=== PATIENT | male | born 1990 | race Caucasian/White ===

== ENCOUNTER 2020-04-18 19:43 | Observation (INO) | payer MEDICAID, SELFPAY ==
[2020-04-18 19:44] VITALS: BP 134/75; PULSE 88; RESP 15; TEMP 36.2; O2SAT 100; BMI 17.9
--- NOTE | 2020-04-18 21:09 | ED.VIS.GEN ---
History of Present Illness Chief Complaint: Substance Abuse Informant: Patient Narrative: Patient is a 29-year-old male with longstanding history of opioid dependency presenting for request for opioid detox. Patient states he is been using for the past 2 to 3 years. He uses Percocet anywhere between 10 to 40 mg a day whenever he can get his hands on it. Otherwise he uses heroin or fentanyl. States he uses about half a gram a day. He snorts. He denies any IV drug use. He also uses marijuana intermittently as well as occasional alcohol use. He denies any tobacco use. He states he does not drink heavily and denies any alcohol withdrawal issues. Patient states he last used this afternoon. He currently is not having withdrawal symptoms. Patient states he had intervention with his family which is why he is here today however he is also stating that he wanted to get clean for a while. He denies any other symptoms at this time or complaints. Past Medical History - Allergies and Home Meds Allergies/Adverse Reactions: Allergies No Known Allergies Allergy (Verified 04/18/20 19:46) Primary Care Physician: Care Physician,No Primary [Primary Care Provider] - Past Medical History: - - Opioid dependency Surgical History: no surgical history Smoking Status: Never smoker Review of Systems General: Denies: Chills, Fever, Sweats Eyes: Denies: Visual changes - bilaterally, Diplopia ENT: Denies: Rhinorrhea, Sore throat Cardiovascular: Denies: Chest pain, Palpitations Respiratory: Denies: Dyspnea, Cough, Dyspnea on exertion Gastrointestinal: Denies: Abdominal pain, Nausea, Vomiting, Diarrhea, Melena, Hematochezia Genitourinary: Denies: Dysuria, Hematuria, Frequency Musculoskeletal: Denies: Back pain, Extremity Pain Skin: Denies: Rash, Wounds Neurological: Denies: Headache, Weakness, Numbness Physical Exam Vital Signs/Narrative: Vital Signs Temp Pulse Resp BP Pulse Ox 04/18/20 19:44 97.2 F L 88 15 134/75 H 100 Inital Vital Signs reviewed: Yes General: Well nourished, Well developed, No Acute Distress Head: Normocephalic, Atraumatic Eyes: Perrl, EOMI ENT: Moist mucous membranes, No rhinorrhea Neck: Supple, Nontender Cardiovascular: Regular rate, Regular rhythm, No murmurs Respiratory: No distress, CTA bilaterally, Chest nontender Abdomen: Soft, Nontender, Nondistended, Normal bowel sounds Back: Nontender, Normal Inspection Extremities: Nontender, No edema Skin: Normal color, No rash Neurological: Alert, Oriented x3, Cranial nerves II-XII grossly intact, Normal Strength, Normal Sensation Psychological: Normal affect, Normal Mood Diagnostic/Tx/Re-eval - Medical Decision Making Patient is evaluated for request of opioid detox. Patient does not appear intoxicated at this time. He is acting appropriately. He is given the rules and restrictions for detox and is agreeable with them. Screening labs are obtained. Patient be admitted to hospitalist service for inpatient detox. He is agreeable with plan and stable at time of disposition. He does not appear to be withdrawing acutely at this time. ED Disposition - Plan for ED Patient: Diagnosis: Opioid dependence Referrals: Care Physician,No Primary [Primary Care Provider] -
--- NOTE | 2020-04-18 21:14 | HP.PCM_ITS ---
Problem List (1) Acute opioid withdrawal Status: Acute (2) Acute hyperactive opioid withdrawal delirium Status: Chronic History of Present Illness Date of Admission: 04/18/20 Chief Complaint: Opioid use and dependence. Wants detox. The patient is a 29 year old M with history of chronic opioid use mainly oral Percocet since 2016 came to ER for detox. Patient has history of marijuana use since 2009. In 2016, he hurt his back and was prescribed Percocet. Once he was stopped prescribing, he went for Street Percocet use. He usually takes 50 to 60 mg oxycodone daily. Denies IV use of opioids, methamphetamine ecstasy and other drugs like phencyclidine. Patient snorts oxycodone. He denies benzodiazepines, anticholinergics or other drugs. He occasionally used cigarettes and vaping in the past. He smokes marijuana regularly. His last dose was today in afternoon. He is having mild anxiety symptoms but he still does not have tremors, restless leg, nausea, vomiting, diarrhea, hallucinations or seizures. He usually gets restless, tremor and anxiety attack as withdrawal symptoms. Labs were ordered in the ER. Vitals done in the ER are within normal limit. [] Past Medical History Past Medical History (Chronic Problems): Chronic Problems Acute hyperactive opioid withdrawal delirium (Chronic) Allergies No Known Allergies Allergy (Verified 04/18/20 19:46) Home Medications: Ambulatory Orders Medication Instructions Recorded NK 04/18/20 Surgical History: no surgical history Smoking Status: Never smoker Tobacco Use: Vapor - Refused occasionally vaping in the past. Alcohol: None, Occasional Drugs: - - Percocet Review of Systems Constitutional: Denies: Chills, Fever, Weight Change Eyes: Denies: Blurred vision HEENT: Denies: Difficulty Hearing, Difficulty Swallowing, Head Aches, Sinus Congestion, Sinus Drainage Cardiovascular: Denies: Chest Pain, Palpitations Respiratory: Denies: Cough, Shortness of breath at rest, Sputum production Gastrointestinal: Denies: Abdominal Pain, Nausea, Vomiting Genitourinary: Denies: Dysuria Musculoskeletal: Reports: Back Pain, Muscle pain. Denies: Joint Pain, Joint Tenderness Skin: Denies: Rash, Wounds Neurological: Denies: Balance problems, Blurred vision, Double vision, Focal weakness, Incoordination, Numbness, Tingling Psychiatric: Reports: Anxiety. Denies: Depression, Homicidal Ideations, Suicidal Ideations Hematologic/ Lymphatic: Denies: Easy Bruising, Easy Bleeding VTE Information - Inpt Only VTE Present on Admission: No VTE Mechan Device Prophylaxis: None VTE Pharm Prophylaxis ordered?: No Reason prophylaxis not ordered:: Procedure Not Indicated - Low risk Patient Problems: Active and Suspected Problems Opioid dependence (Acute) Acute opioid withdrawal (Acute) - Physical Exam Vitals/I&O's: Vital Signs Temp Pulse Resp BP Pulse Ox 97.2 F L 88 15 134/75 H 100 04/18/20 19:44 04/18/20 19:44 04/18/20 19:44 04/18/20 19:44 04/18/20 19:44 Oxygen Delivery Method Room Air Weight: 136 lb 0.403 oz Body Mass Index (BMI) 17.9 General: Alert, Oriented x3, Cooperative HEENT: Atraumatic, PERRLA, EOMI, Normocephalic Neck: Supple, No JVD, Negative Carotid Bruits Lungs: Clear to auscultation, Normal air movement, No rhonchi, No wheeze, No rales Cardiovascular: Regular rate, Regular Rhythm, Normal S1, Normal S2, No murmurs Abdomen: Bowel Sounds Present, Soft, Non Tender, Non-Distended Extremities: No edema, Capillary Refill Less than 3 Seconds Skin: No rashes, No breakdown Musculoskeletal: No Tenderness to Palpation of Joints or Extremities Neurological: Cranial nerves II-XII grossly intact, Deep Tendon Reflexes 2+/4 and Symmetrical, Neuro grossly intact, Motor Exam 5/5 strength throughout Psych/Mental Status: Anxious Assessment/Plan All Active Problems Opioid dependence (Acute) Acute opioid withdrawal (Acute) There is a 29-year-old gentleman came to ER for assistance for detoxification of opioid use and dependence. Last use was today. 1. Acute opioid withdrawal: [facility] Started on buprenorphine based order set for acute opioid withdrawal symptom control. Labs are ordered and pending. U tox is ordered 2. Chronic opioid use, dependence and tolerance: Counseling done to stop using the drugs. 3. Chronic use of marijuana 4. VTE prophylaxis, low risk. Early ambulation encouraged. No prophylaxis indicated Inpatient E&M: 33198 Init Hosp L3
[2020-04-18 21:21] VITALS: BP 134/75; PULSE 88; RESP 15; TEMP 36.2; O2SAT 100
[2020-04-18 21:25] LABS: Absolute Lymphocyte Count 2.25 X10^3/uL (0.83-4.51); Absolute Neutrophil Count 5.5 X10^3/uL (2.0-7.7); Basophil# 0.05 X10^3/uL; Basophil% 0.6 % (0-1); Eosinophil# 0.03 X10^3/uL; Eosinophils% 0.4 % (0-5); Hemoglobin 14.1 g/dL (13.0-16.5); Lymphocyte # 2.25 X10^3/ul (4.0); Lymphocyte % 26.6 % (19-41); Mean Corpuscular Hgb 28.7 pg (27.0-32.0); Mean Corpuscular Volume 89.4 fL (80-94); Mean Platelet Vol. 9.3 fl (6.2-12.0); Monocyte# 0.61 X10^3/uL; Monocyte% 7.2 % (0-10); NRBC Flagged by Analyzer 0 % (0-5); Neutrophil # 5.49 X10^3/uL (2.7-7.7); Platelet Count 283 K/mm3 (150-450); RBC Distribution Width CV 12.4 % (11.6-14.6); RBC Distribution Width SD 40.4 fl (35.1-43.9); Red Blood Count 4.92 M/mm3 (4.6-6.2); White Blood Count 8.5 K/mm3 (4.4-11.0)
[2020-04-18 21:29] VITALS: BP 106/63; PULSE 88; RESP 16; TEMP 36.9; O2SAT 100
[2020-04-18 21:41] LABS: Amphetamine Urine VISTA NEGATIVE (<1000 ng/mL); Barbiturate Urine VISTA NEGATIVE (< 200 ng/mL); Benzodiazepine Urine VISTA NEGATIVE (< 200 ng/mL); Cocaine Urine VISTA NEGATIVE (< 300 ng/mL); Ecstacy Urine VISTA NEGATIVE (< 500 ng/mL); Methadone Urine VISTA NEGATIVE (< 300 ng/mL); PCP Urine VISTA NEGATIVE (< 25 ng/mL); THC Urine VISTA NEGATIVE (< 50 ng/mL); Vista UDS pH Range 6
[2020-04-18 21:54] LABS: Bacteria 0 SEEN /hpf (None Seen); Mucous, Urine 0 SEEN /hpf (<or=2+); Red Blood Cells-Urine 0 SEEN /hpf (0-5); Squamous Epithelial Cells - UA 0 SEEN /hpf (0-5); White Blood Cells 0 SEEN /hpf (0-5)
[2020-04-18 22:12] VITALS: BP 110/65; PULSE 71; RESP 14; TEMP 36.6; O2SAT 100
[2020-04-18 22:14] LABS: Color, Urine Yellow (Yellow); Glucose, Dipstick Normal (Normal); Ketone-Dipstick Negative (Negative); Leukocyte Esterase-Dipstick Negative /ul (Negative); Nitrite-Dipstick Negative (Negative); Occult Blood-Urine Negative /ul (Negative); Protein-Dipstick Negative (Negative); Urine Bilirubin Dipstick Negative (Negative); Urine Clarity Clear (Clear); Urine Urobilinogen Normal (Normal)
[2020-04-18 22:20] VITALS: BMI 17.5
[2020-04-18 22:21] VITALS: BMI 17.6
[2020-04-18 22:47] LABS: ALB/GLOB Ratio 1.2 RATIO (0.9-2.4); AST(SGOT) 13 U/L (15-37); Alanine Aminotransfer ALT/SGPT 20 U/L (16-61); Albumin, Serum 3.5 g/dL (3.2-5.0); Alkaline Phosphatase 68 U/L (45-117); Anion Gap 4 (5-15); BUN 9 mg/dL (7-18); BUN/Creat Ratio 12.8 RATIO (10-20); Calcium,Total 8.2 mg/dL (8.5-10.1); Chloride 105 mmol/L (98-107); EST Glomerular Filtration Rate 140 mL/min (>60); Est Glom Filt Rate - Afr Amer 169 mL/min (>60); Estimated Creatinine Clearance 133.02 ml/min; Glucose 66 mg/dL (74-106); Magnesium 2.2 mg/dL (1.6-2.6); Potassium 3.4 mmol/L (3.5-5.1); Protein, Total 6.5 g/dL (6.4-8.2); Sodium Level 141 mmol/L (136-145)
[2020-04-18 23:25] LABS: International Normalized Ratio 1.2; Prothrombin Time (Protime)PT. 14.8 SECONDS (11.7-14.9)
[2020-04-19 02:38] VITALS: BP 108/64; PULSE 82; RESP 14; TEMP 36.5; O2SAT 99
[2020-04-19 05:49] VITALS: BP 97/54; PULSE 73; RESP 14; TEMP 36.6; O2SAT 99
[2020-04-19 08:45] VITALS: BP 96/49; PULSE 59; RESP 12; TEMP 36.7; O2SAT 98
--- NOTE | 2020-04-19 10:42 | ADDICTION ---
This advertising writer met with patient in his room this morning to conduct ASAM, MSE, and DUDIT assessments and to begin processing discharge. Patient reports that he does not have insurance and needs to obtain insurance prior to following through with ongoing AoD treatment. This advertising writer provided patient with contact information for [facility] and [facility]. Job and Family Services locations, [facility]. ADM board, [facility], [facility], [facility] and [facility] ([facility]) and [facility], [facility], [facility], [facility], [facility] and [facility] ([facility]). He appears appropriate for the 4.0 LOC as evidenced by his use history and current, active withdrawal symptoms. This advertising writer will fax completed assessments to [facility].
[2020-04-19] MEDS: Mag Hydrox/Al Hydrox/Simeth 30 ML UDC PO (13:13)
[2020-04-19] MEDS: Buprenorphine HCl 2 MG TAB.SUBL SL ×2 (13:13→20:42)
[2020-04-19] MEDS: cloNIDine HCl 0.1 MG Tablet PO (13:13)
[2020-04-19] MEDS: hydrOXYzine PAM 25 MG Capsule 50 MG PO ×2 (13:13→20:07)
--- NOTE | 2020-04-19 13:19 | PCM.PN.HOSP ---
Patient Problems: Active and Suspected Problems Opioid dependence (Acute) Acute opioid withdrawal (Acute) Subjective: Doing well, no issues overnight Vitals/I&O's: Vital Signs Temp Pulse Resp BP Pulse Ox 98.1 F 59 L 12 96/49 L 98 04/19/20 08:45 04/19/20 08:45 04/19/20 08:45 04/19/20 08:45 04/19/20 08:45 Oxygen Delivery Method Room Air Weight: 133 lb 2.547 oz Body Mass Index (BMI) 17.5 Intake and Output for Last 24 Hours 04/17/20 04/18/20 04/19/20 23:59 23:59 23:59 Intake Total 620 / 620 Balance 620 / 620 General: Alert, Oriented x3, Cooperative, No apparent distress HEENT: Atraumatic, PERRLA, EOMI, Normocephalic Oral: Moist Mucosa Neck: Supple, No JVD Lungs: Clear to auscultation, Normal air movement, No rhonchi, No wheeze, No rales Cardiovascular: Regular rate, Regular Rhythm, Normal S1, Normal S2, No murmurs Abdomen: Soft, Non Tender, Non-Distended, No Hepato-splenomegaly Extremities: No edema, Capillary Refill Less than 3 Seconds Skin: No rashes, No breakdown Neurological: Neuro grossly intact, Sensory exam intact to light touch and pain Psych/Mental Status: Normal Affect, Appropriate Laboratory Results 04/18/20 20:00: Urine Opiates Screen NEGATIVE, Urine Methadone Screen NEGATIVE, Ur Barbiturates Screen NEGATIVE, Ur Phencyclidine Scrn NEGATIVE, Ur Amphetamines Screen NEGATIVE, U Methamphetamin-MDMA NEGATIVE, U Benzodiazepines Scrn NEGATIVE, Urine Cocaine Screen NEGATIVE, U Cannabinoids Screen NEGATIVE, Ur Drug Screen Comment 04/18/20 20:00: Urine Color Yellow, Urine Clarity Clear, Urine pH 7.0, Ur Specific [place] 1.010, Urine Protein Negative, Urine Glucose (UA) Normal, Urine Ketones Negative, Urine Occult Blood Negative, Urine Nitrite Negative, Urine Bilirubin Negative, Urine Urobilinogen Normal, Ur Leukocyte Esterase Negative, Urine RBC 0 SEEN, Urine WBC 0 SEEN, Ur Squamous Epith Cells 0 SEEN, Urine Bacteria 0 SEEN, Urine Mucus 0 SEEN 04/18/20 21:17: WBC 8.5, RBC 4.92, Hgb 14.1, Hct 44.0, MCV 89.4, MCH 28.7, MCHC 32.0, RDW Std Deviation 40.4, RDW Coeff of Floyd 12.4, Plt Count 283, MPV 9.3, Immature Gran % (Auto) 0.200, Neut % (Auto) 65.0, Lymph % (Auto) 26.6, Holmes % (Auto) 7.2, Eos % (Auto) 0.4, Baso % (Auto) 0.6, Absolute Neuts (auto) 5.5, Absolute Lymphs (auto) 2.25, Nucleated RBC % 0 04/18/20 21:17: PT Cancelled, INR Cancelled 04/18/20 21:17: Sodium Cancelled, Potassium Cancelled, Chloride Cancelled, Carbon Dioxide Cancelled, Anion Gap Cancelled, BUN Cancelled, Creatinine Cancelled, Estim Creat Clear Calc Cancelled, Est GFR (MDRD) Af Amer Cancelled, Est GFR (MDRD) Non-Af Cancelled, BUN/Creatinine Ratio Cancelled, Glucose Cancelled, Calcium Cancelled, Magnesium Cancelled, Total Bilirubin Cancelled, AST Cancelled, ALT Cancelled, Alkaline Phosphatase Cancelled, Total Protein Cancelled, Albumin Cancelled, Globulin Cancelled, Albumin/Globulin Ratio Cancelled 04/18/20 21:17: Ethyl Alcohol 10.0 04/18/20 21:30: PT Cancelled, INR Cancelled 04/18/20 22:20: Sodium 141, Potassium 3.4 L, Chloride 105, Carbon Dioxide 32.0, Anion Gap 4 L, BUN 9, Creatinine 0.70, Estim Creat Clear Calc 133.02, Est GFR (MDRD) Af Amer 169, Est GFR (MDRD) Non-Af 140, BUN/Creatinine Ratio 12.8, Glucose 66 L, Calcium 8.2 L, Magnesium 2.2, Total Bilirubin 0.40, AST 13 L, ALT 20, Alkaline Phosphatase 68, Total Protein 6.5, Albumin 3.5, Globulin 3.0, Albumin/Globulin Ratio 1.2 04/18/20 22:20: PT 14.8, INR 1.2 Current Medications Acetaminophen (Tylenol) 500 mg PO Q4H PRN PRN PRN Reason: Temp > 100.4 F Al Hydroxide/Mg Hydroxide (Mylanta Ii) 30 ml PO Q6H PRN PRN PRN Reason: dyspesia Last Admin: 04/19/20 13:13 Dose: 30 ml Documented by: Bisacodyl (Dulcolax) 10 mg RECTAL DAILY PRN PRN Reason: Constipation Buprenorphine HCl (Buprenorphine Hcl) 4 mg SL Q8H MARIANA; Taper Stop: 04/22/20 13:14 Last Admin: 04/19/20 13:13 Dose: 4 mg Documented by: Clonidine (Catapres) 0.1 mg PO Q8H PRN PRN PRN Reason: RESTLESSNESS Last Admin: 04/19/20 13:13 Dose: 0.1 mg Documented by: Dicyclomine HCl (Bentyl) 20 mg PO Q6H PRN PRN PRN Reason: Abdominal Discomfort Gabapentin (Neurontin) 300 mg PO Q8H PRN PRN PRN Reason: moderate to severe anxiety Hydroxyzine Pamoate (Vistaril Pamoate Capsule) 50 mg PO Q6H PRN PRN PRN Reason: mild anxiety Last Admin: 04/19/20 13:13 Dose: 50 mg Documented by: Ibuprofen (Motrin) 600 mg PO Q8H PRN PRN PRN Reason: Pain Score 1-10/10 Loperamide HCl (Imodium) 2 mg PO Q4H PRN PRN PRN Reason: LOOSE STOOLS Methocarbamol (Methocarbamol) 1,500 mg PO Q6H PRN PRN PRN Reason: MUSCLE SPASM Ondansetron HCl (Zofran Odt) 8 mg PO Q8H PRN PRN PRN Reason: NAUSEA Senna (Senokot) 2 tablet PO QHS PRN PRN PRN Reason: Constipation Trazodone HCl (Desyrel) 100 mg PO QHS PRN PRN PRN Reason: INSOMNIA Medical Necessity - Tobacco Use Smoking Status: Never smoker Tobacco Use: Vapor - Refused occasionally vaping in the past. Assessment/Plan All Active Problems Opioid dependence (Acute) Acute opioid withdrawal (Acute) 1. Acute opiate withdrawal -Last use was 6 PM last night. He is examined between 0.2-.4 g -He started using after back injury in 2014 and he initially started with Percocet and then transition to heroin -Continue with opiate withdrawal protocol and plan for discharge to [facility] DVT: Ambulation Inpatient E&M: 07733 [facility] Hosp L2
[2020-04-19 14:00] VITALS: BP 105/68; PULSE 64; RESP 12; TEMP 36.7; O2SAT 100
--- NOTE | 2020-04-19 15:37 | CASEMGMT ---
Addendum entered by Clemencia Landis 04/19/20 15:39: Per PFS, pt has [facility] Medicaid. Original Note: Social Work Note Pt is listed as self-pay. Laurel Martínez provided pt with resources on [facility] & family services and resources for substance abuse treatment in [place]. SW to follow for any financial concerns that arise. Clemencia Landis CONFIGURATION MANAGEMENT ADVISOR, [employer] FARMWORKER
[2020-04-19] MEDS: Gabapentin 300 MG Capsule PO (16:08)
[2020-04-19] MEDS: Methocarbamol 750 MG Tablet 1500 MG PO (16:08)
[2020-04-19] MEDS: Ibuprofen 600 MG Tablet PO (18:11)
[2020-04-19] MEDS: Dicyclomine 10 MG Capsule 20 MG PO (18:11)
[2020-04-19] MEDS: chlordiazePOXIDE 25 MG Capsule PO ×2 (18:12→23:33)
[2020-04-19 20:01] VITALS: BP 110/67; PULSE 56; RESP 16; TEMP 36.7; O2SAT 99
--- NOTE | 2020-04-19 22:10 | NURSING ---
Per patient, ok to give medical information to grandmother if she calls in. Juliane Cardoza: [phone]
[2020-04-20 02:05] VITALS: BP 112/69; PULSE 67; RESP 16; TEMP 36.8; O2SAT 100
[2020-04-20] MEDS: Methocarbamol 750 MG Tablet 1500 MG PO ×2 (02:09→21:10)
[2020-04-20] MEDS: Buprenorphine HCl 2 MG TAB.SUBL SL ×3 (04:33→21:10)
[2020-04-20] MEDS: chlordiazePOXIDE 25 MG Capsule PO ×4 (05:21→23:15)
[2020-04-20 10:00] VITALS: BP 112/72; PULSE 53; RESP 14; TEMP 37; O2SAT 100
[2020-04-20] MEDS: Ibuprofen 600 MG Tablet PO (11:10)
[2020-04-20] MEDS: Loperamide 2 MG Capsule PO (11:10)
[2020-04-20] MEDS: Ondansetron ODT 4 MG Tablet 8 MG PO ×2 (11:10→20:09)
--- NOTE | 2020-04-20 12:15 | PN_ITS ---
Patient Problems: Active and Suspected Problems Opioid dependence (Acute) Acute opioid withdrawal (Acute) Subjective: No acute withdrawal symptoms yesterday, and was started on Librium for just a total of 8 doses every 6 hours. He is finally been able to fall asleep Vitals/I&O's: Vital Signs Temp Pulse Resp BP Pulse Ox 98.6 F 53 L 14 112/72 100 04/20/20 10:00 04/20/20 10:00 04/20/20 10:00 04/20/20 10:04/20/20 10:00 Oxygen Delivery Method Room Air Weight: 133 lb 2.547 oz Body Mass Index (BMI) 17.5 Intake and Output for Last 24 Hours 04/18/20 04/19/20 04/20/20 23:59 23:59 23:59 Intake Total 770 / 770 Balance 770 / 770 General: Alert, Oriented x3, Cooperative, No apparent distress HEENT: Atraumatic, PERRLA, EOMI, Normocephalic Oral: Moist Mucosa Neck: Supple, No JVD Lungs: Clear to auscultation, Normal air movement, No rhonchi, No wheeze, No rales Cardiovascular: Regular rate, Regular Rhythm, Normal S1, Normal S2, No murmurs Abdomen: Soft, Non Tender, Non-Distended, No Hepato-splenomegaly Extremities: No edema, Capillary Refill Less than 3 Seconds Skin: No rashes, No breakdown Neurological: Neuro grossly intact, Sensory exam intact to light touch and pain Psych/Mental Status: Normal Affect, Appropriate Current Medications Acetaminophen (Tylenol) 500 mg PO Q4H PRN PRN PRN Reason: Temp > 100.4 F Al Hydroxide/Mg Hydroxide (Mylanta Ii) 30 ml PO Q6H PRN PRN PRN Reason: dyspesia Last Admin: 04/19/20 13:13 Dose: 30 ml Documented by: Bisacodyl (Dulcolax) 10 mg RECTAL DAILY PRN PRN Reason: Constipation Buprenorphine HCl (Buprenorphine Hcl) 4 mg SL Q8H MARIANA; Taper Stop: 04/22/20 13:14 Last Admin: 04/20/20 04:33 Dose: 4 mg Documented by: Chlordiazepoxide (Librium) 25 mg PO Q6 MARIANA Stop: 04/21/20 12:01 Last Admin: 04/20/20 11:10 Dose: 25 mg Documented by: Clonidine (Catapres) 0.1 mg PO Q8H PRN PRN PRN Reason: RESTLESSNESS Last Admin: 04/19/20 13:13 Dose: 0.1 mg Documented by: Dicyclomine HCl (Bentyl) 20 mg PO Q6H PRN PRN PRN Reason: Abdominal Discomfort Last Admin: 04/19/20 18:11 Dose: 20 mg Documented by: Gabapentin (Neurontin) 300 mg PO Q8H PRN PRN PRN Reason: moderate to severe anxiety Last Admin: 04/19/20 16:08 Dose: 300 mg Documented by: Hydroxyzine Pamoate (Vistaril Pamoate Capsule) 50 mg PO Q6H PRN PRN PRN Reason: mild anxiety Last Admin: 04/19/20 20:07 Dose: 50 mg Documented by: Ibuprofen (Motrin) 600 mg PO Q8H PRN PRN PRN Reason: Pain Score 1-10/10 Last Admin: 04/20/20 11:10 Dose: 600 mg Documented by: Loperamide HCl (Imodium) 2 mg PO Q4H PRN PRN PRN Reason: LOOSE STOOLS Last Admin: 04/20/20 11:10 Dose: 2 mg Documented by: Methocarbamol (Methocarbamol) 1,500 mg PO Q6H PRN PRN PRN Reason: MUSCLE SPASM Last Admin: 04/20/20 02:09 Dose: 1,500 mg Documented by: Ondansetron HCl (Zofran Odt) 8 mg PO Q8H PRN PRN PRN Reason: NAUSEA Last Admin: 04/20/20 11:10 Dose: 8 mg Documented by: Senna (Senokot) 2 tablet PO QHS PRN PRN PRN Reason: Constipation Trazodone HCl (Desyrel) 100 mg PO QHS PRN PRN PRN Reason: INSOMNIA STROKE Vital Signs/Narrative: Vital Signs Temp Pulse Resp BP Pulse Ox 04/20/20 10:00 98.6 F 53 L 14 112/72 100 Medical Necessity - Tobacco Use Smoking Status: Never smoker Tobacco Use: Vapor - Refused occasionally vaping in the past. Assessment/Plan All Active Problems Opioid dependence (Acute) Acute opioid withdrawal (Acute) 1. Acute opiate withdrawal -Last use was 6 PM last night. He is examined between 0.2-.4 g -He started using after back injury in 2014 and he initially started with Percocet and then transition to heroin/fentanyl -Continue with opiate withdrawal protocol and plan for discharge to [facility] -We will continue with Librium 25 mg p.o. every 6 hours for 8 total doses DVT: Ambulation Inpatient E&M: 59998 Subs Hosp L2
--- NOTE | 2020-04-20 13:03 | ADDICTION ---
This headline writer attempted to meet with patient. Patient declined due to not feeling well.
[2020-04-20 14:05] VITALS: BP 112/74; PULSE 52; RESP 12; TEMP 37.2; O2SAT 99
[2020-04-20 16:55] VITALS: BP 120/73; PULSE 56; RESP 14; TEMP 37.3; O2SAT 100
[2020-04-20 20:04] VITALS: BP 121/77; PULSE 59; RESP 16; TEMP 36.9; O2SAT 100
[2020-04-20] MEDS: Dicyclomine 10 MG Capsule 20 MG PO (23:15)
[2020-04-21 02:34] VITALS: BP 114/73; PULSE 54; RESP 16; TEMP 37.5; O2SAT 98
[2020-04-21] MEDS: Buprenorphine HCl 2 MG TAB.SUBL SL ×2 (04:46→14:20)
[2020-04-21] MEDS: chlordiazePOXIDE 25 MG Capsule PO ×2 (06:09→11:58)
--- NOTE | 2020-04-21 09:33 | ADDICTION ---
This functional tester typewriters attempted to visit with patient this morning to finalize discharge plan and to provide support. Patient did not rouse to this functional tester typewriters's verbal attempts to wake him up to engage in planning. Patient appeared to be resting peacefully. This functional tester typewriters will attempt to meet with patient tomorrow if he is still at [facility].
[2020-04-21 09:58] VITALS: BP 102/65; PULSE 50; RESP 18; TEMP 36.7; O2SAT 99
--- NOTE | 2020-04-21 11:50 | PN_ITS ---
Patient Problems: Active and Suspected Problems Opioid dependence (Acute) Acute opioid withdrawal (Acute) Subjective: Has had a rough few days. Feeling a little bit better today. He will finish his Subutex taper at 1 AM Vitals/I&O's: Vital Signs Temp Pulse Resp BP Pulse Ox 98.0 F 50 L 18 102/65 99 04/21/20 09:58 04/21/20 09:58 04/21/20 09:58 04/21/20 09:58 04/21/20 09:58 Oxygen Delivery Method Room Air Weight: 133 lb 2.547 oz Body Mass Index (BMI) 17.5 Intake and Output for Last 24 Hours 04/19/20 04/20/20 04/21/20 23:59 23:59 23:59 Intake Total 770 / 770 300 / 300 Output Total 100 / 100 Balance 770 / 770 200 / 200 General: Alert, Oriented x3, Cooperative, No apparent distress, tired HEENT: Atraumatic, PERRLA, EOMI, Normocephalic Oral: Moist Mucosa Neck: Supple, No JVD Lungs: Clear to auscultation, Normal air movement, No rhonchi, No wheeze, No rales Cardiovascular: Regular rate, Regular Rhythm, Normal S1, Normal S2, No murmurs Abdomen: Soft, Non Tender, Non-Distended, No Hepato-splenomegaly Extremities: No edema, Capillary Refill Less than 3 Seconds Skin: No rashes, No breakdown Neurological: Neuro grossly intact, Sensory exam intact to light touch and pain Psych/Mental Status: Normal Affect, Appropriate Current Medications Acetaminophen (Tylenol) 500 mg PO Q4H PRN PRN PRN Reason: Temp > 100.4 F Al Hydroxide/Mg Hydroxide (Mylanta Ii) 30 ml PO Q6H PRN PRN PRN Reason: dyspesia Last Admin: 04/19/20 13:13 Dose: 30 ml Documented by: Bisacodyl (Dulcolax) 10 mg RECTAL DAILY PRN PRN Reason: Constipation Buprenorphine HCl (Buprenorphine Hcl) 2 mg SL Q8H MARIANA; Taper Stop: 04/22/20 13:14 Last Admin: 04/21/20 04:46 Dose: 2 mg Documented by: Chlordiazepoxide (Librium) 25 mg PO Q6 MARIANA Stop: 04/21/20 12:01 Last Admin: 04/21/20 06:09 Dose: 25 mg Documented by: Clonidine (Catapres) 0.1 mg PO Q8H PRN PRN PRN Reason: RESTLESSNESS Last Admin: 04/19/20 13:13 Dose: 0.1 mg Documented by: Dicyclomine HCl (Bentyl) 20 mg PO Q6H PRN PRN PRN Reason: Abdominal Discomfort Last Admin: 04/20/20 23:15 Dose: 20 mg Documented by: Gabapentin (Neurontin) 300 mg PO Q8H PRN PRN PRN Reason: moderate to severe anxiety Last Admin: 04/19/20 16:08 Dose: 300 mg Documented by: Hydroxyzine Pamoate (Vistaril Pamoate Capsule) 50 mg PO Q6H PRN PRN PRN Reason: mild anxiety Last Admin: 04/19/20 20:07 Dose: 50 mg Documented by: Ibuprofen (Motrin) 600 mg PO Q8H PRN PRN PRN Reason: Pain Score 1-10/10 Last Admin: 04/20/20 11:10 Dose: 600 mg Documented by: Loperamide HCl (Imodium) 2 mg PO Q4H PRN PRN PRN Reason: LOOSE STOOLS Last Admin: 04/20/20 11:10 Dose: 2 mg Documented by: Methocarbamol (Methocarbamol) 1,500 mg PO Q6H PRN PRN PRN Reason: MUSCLE SPASM Last Admin: 04/20/20 21:10 Dose: 1,500 mg Documented by: Ondansetron HCl (Zofran Odt) 8 mg PO Q8H PRN PRN PRN Reason: NAUSEA Last Admin: 04/20/20 20:09 Dose: 8 mg Documented by: Senna (Senokot) 2 tablet PO QHS PRN PRN PRN Reason: Constipation Trazodone HCl (Desyrel) 100 mg PO QHS PRN PRN PRN Reason: INSOMNIA STROKE Vital Signs/Narrative: Vital Signs Temp Pulse Resp BP Pulse Ox 04/21/20 09:58 98.0 F 50 L 18 102/65 99 Medical Necessity - Tobacco Use Smoking Status: Never smoker Tobacco Use: Vapor - Refused occasionally vaping in the past. Assessment/Plan All Active Problems Opioid dependence (Acute) Acute opioid withdrawal (Acute) 1. Acute opiate withdrawal -Last use was 6 PM last night. He is examined between 0.2-.4 g -He started using after back injury in 2014 and he initially started with Percocet and then transition to heroin/fentanyl -Continue with opiate withdrawal protocol and plan for discharge to [facility] -We will continue with Librium 25 mg p.o. every 6 hours for 8 total doses DVT: Ambulation Inpatient E&M: 03270 Subs Hosp L2
--- NOTE | 2020-04-21 13:30 | CHAPLAIN ---
Type of Pastoral Visit _x__ Initial Visit ___ Follow-up Visit ___ On-call Visit ___ General Patient Visit ___ Spiritual Assessment ___ Family Conference ___ Bereavement ___ Rapid Response ___ Code Blue ___ Other (describe below) Pastoral Care Referral From _x__ Patient ___ Family ___ Nurse ___ Physician ___ Chief Guard ___ Junior [employer] D[employer] ___ Other (describe below) Sacrament/Intervention _x__ Active listening ___ Anointing ___ Anabaptist ___ Bereavement ___ Communion ___ Chanelle exploration ___ _x__ Life review ___ Prayer ___ Reconciliation ___ Sacrament of Sick _x__ Supportive presence ___ Wedding ___ Other (describe below) Pastoral Comments patient was awake and welcomed this historic site administrator into room; pt states that he is feeling much better today and is glad that he got help for detox; pt begins life story and how family held an intervention for him on Sunday night and that is when he came to hospital; pt states this is what I wanted but didn't know how to do it; pt says he is motivated due to wanting to be there for his family; this historic site administrator was called out of room for emergency at this time and concluded this visit
[2020-04-21 14:22] VITALS: BP 122/72; PULSE 67; RESP 18; TEMP 36.9; O2SAT 97
[2020-04-21 20:25] VITALS: BP 107/72; PULSE 58; RESP 16; TEMP 36.8; O2SAT 99
[2020-04-22] MEDS: Buprenorphine HCl 2 MG TAB.SUBL SL (01:15)
[2020-04-22 08:40] VITALS: BP 110/75; PULSE 54; RESP 18; TEMP 36.8; O2SAT 100
--- NOTE | 2020-04-22 08:49 | DCINST_ITS ---
- Discharge Diagnoses Current Active Problems: Current Active and Chronic Problems Opioid dependence (Acute) Acute opioid withdrawal (Acute) Acute hyperactive opioid withdrawal delirium (Chronic) You will use the following diet at home:: Regular Your food should be the consistency of: Regular Your liquids should be the consistency of: Regular/Thin Discharge Activity: Return to Normal Activity Call your doctor if you observe: Fever of 101 or Higher, Shortness of breath, Dizziness, Fainting spells, Swelling in the ankles, Chest pain, Increased palpitations (irregular heartbeat) Allergies/Adverse Reactions: Allergies No Known Allergies Allergy (Verified 04/18/20 19:46) Medications to take at Discharge NK 04/18/20 Primary Care Physician: Care Physician,No Primary [Primary Care Provider] - Please follow up with your Primary Care Physician in: 3-5 days Test Results: Test results from this visit will be discussed in further detail at your follow- up appointment, if applicable. Please Follow Up With: 180 When: When scheduled
--- NOTE | 2020-04-22 14:48 | DS.PCM_ITS ---
Discharge Date and Diagnosis Date of Admission: 04/18/20 Date of Discharge: 04/22/20 - Secondary Discharge Diagnosis Chronic Problems: Chronic Problems Acute hyperactive opioid withdrawal delirium (Chronic) Hospital Course and Treatment Imaging Results: None Consults: None Operations: None Procedures: None Summary of Care Provided: Per HPI: The patient is a 29 year old M with history of chronic opioid use mainly oral Percocet since 2016 came to ER for detox. Patient has history of marijuana use since 2009. In 2016, he hurt his back and was prescribed Percocet. Once he was stopped prescribing, he went for Street Percocet use. He usually takes 50 to 60 mg oxycodone daily. Denies IV use of opioids, methamphetamine ecstasy and other drugs like phencyclidine. Patient snorts oxycodone. He denies benzodiazepines, anticholinergics or other drugs. He occasionally used cigarettes and vaping in the past. He smokes marijuana regularly. His last dose was today in afternoon. He is having mild anxiety symptoms but he still does not have tremors, restless leg, nausea, vomiting, diarrhea, hallucinations or seizures. He usually gets restless, tremor and anxiety attack as withdrawal symptoms. Labs were ordered in the ER. Vitals done in the ER are within normal limit. Hospital Course: 1. Acute opiate [id number] male with history of chronic opiate use use mostly Percocet after he had some back pain, and then transition to fentanyl and heroin presented to the hospital after using between 0.2 1.4 g of heroin. He had a little bit of a rough course and needed the addition of Librium to get his withdrawal symptoms under control. He did tolerate the Librium on top of the Suboxone taper and on the day of discharge was doing very well. He initially did talk with 180, however he was not feeling well enough to talk with him on his second or third day of admission. He was kept an extra day because his Subutex taper was not completed until 1 AM this morning. He was discharged today and he [place] like [place] I discussed with darius herrmann the plan for discharge today and he expressed understanding of the risks and benefits of going home. - Physical Exam Vitals/I&O's: Vital Signs Temp Pulse Resp BP Pulse Ox 98.3 F 54 L 18 110/75 100 04/22/20 08:40 04/22/20 08:40 04/22/20 08:40 04/22/20 08:40 04/22/20 08:40 Oxygen Delivery Method Room Air Weight: 133 lb 2.547 oz Body Mass Index (BMI) 17.5 Intake and Output for Last 24 Hours 04/20/20 04/21/20 04/22/20 23:59 23:59 23:59 Intake Total 300 / 300 500 / 500 250 / 250 Output Total 100 / 100 Balance 200 / 200 500 / 500 250 / 250 General: Alert, Oriented x3, Cooperative, No apparent distress HEENT: Atraumatic, PERRLA, EOMI, Normocephalic Oral: Moist Mucosa Neck: Supple, No JVD Lungs: Clear to auscultation, Normal air movement, No rhonchi, No wheeze, No rales Cardiovascular: Regular rate, Regular Rhythm, Normal S1, Normal S2, No murmurs Abdomen: Soft, Non Tender, Non-Distended, No Hepato-splenomegaly Extremities: No edema, Capillary Refill Less than 3 Seconds Skin: No rashes, No breakdown Neurological: Neuro grossly intact, Sensory exam intact to light touch and pain Psych/Mental Status: Normal Affect, Appropriate Discharge Activity: Return to Normal Activity Call your doctor if you observe: Fever of 101 or Higher, Shortness of breath, Dizziness, Fainting spells, Swelling in the ankles, Chest pain, Increased palpitations (irregular heartbeat) Home Medications: Medications to take at Discharge NK 04/18/20 Primary Care Physician: Care Physician,No Primary [Primary Care Provider] - Please follow up with your Primary Care Physician in: 3-5 days Please Follow Up With: Outpatient Rehab Disposition: Home Minutes spent on discharge:: 35 Patient Condition:: Stable Medical Necessity - Tobacco Use Smoking Status: Never smoker Tobacco Use: Vapor - Refused occasionally vaping in the past. Meaningful Use Info Meaningful Use Diagnoses (Choose all that apply): None applicable Inpatient E&M: 58915 Disch Hosp
== END 2020-04-22 11:55 | disposition home or self-care (01) | DRG 773 ==
LOC: ED 20:14 → MS3 04-19 07:17
PROVIDERS: Admitting Provider Internal Medicine; Emergency Provider Emergency Medicine; Visit Provider Family Medicine
DX: F11.23 Opioid dependence with withdrawal (principal); F12.90 Cannabis use, unspecified, uncomplicated; F17.290 Nicotine dependence, other tobacco product, uncomplicated
CPT/HCPCS: 36415; 80053; 80307; 80320; 81001; 83735; 85025; 85610; 99218; 99284; A4216; G0378; G0480

== ENCOUNTER 2020-10-07 18:31 | Observation (INO) | payer MEDICAID, SELFPAY ==
[2020-10-07 18:33] VITALS: BP 140/77; PULSE 94; RESP 16; TEMP 36.3; O2SAT 100; BMI 18.7
--- NOTE | 2020-10-07 19:10 | ED.DCSUM_ITS ---
History of Present Illness Chief Complaint: Substance Abuse Informant: Patient Narrative: 30-year-old male presents requesting detox from fentanyl. Patient has his grandfather with him. He tells me he has not used anything since March other than some cannabis. States he wants to get counseling and is set up with 180. He states that other than his legs feel little bit weak he feels good. He has significant go to the bathroom and while in the hallway tells me that he is been daily using fentanyl since July but did not tell his grandfather. I did mention that this is pretty much the opposite of what he wants to be doing if he is serious about his rehab. He should not be lying especially to those that care for him. - Past Medical History (1) Opioid dependence Status: Acute Past Medical History - Allergies and Home Meds Allergies/Adverse Reactions: Allergies No Known Allergies Allergy (Verified 10/07/20 18:32) Primary Care Physician: Care Physician,No Primary [Primary Care Provider] - Surgical History: no surgical history Smoking Status: Former smoker Alcohol: Rare Drugs: Marijuana, - - Fentanyl Review of Systems General: Denies: Chills, Fever, Sweats Eyes: Denies: Visual changes - bilaterally, Diplopia ENT: Reports: Rhinorrhea. Denies: Sore throat Cardiovascular: Denies: Chest pain, Palpitations Respiratory: Denies: Dyspnea, Cough, Dyspnea on exertion Gastrointestinal: Reports: Nausea. Denies: Abdominal pain, Vomiting, Diarrhea, Melena, Hematochezia Genitourinary: Denies: Dysuria, Hematuria, Frequency Musculoskeletal: Denies: Back pain, Extremity Pain Skin: Denies: Rash, Wounds Neurological: Denies: Headache, Weakness, Numbness Psych: Reports: Anxiety Physical Exam Vital Signs/Narrative: Vital Signs Temp Pulse Resp BP Pulse Ox 10/07/20 18:33 97.4 F L 94 16 140/77 H 100 Inital Vital Signs reviewed: Yes General: Well nourished, Well developed, No Acute Distress Head: Normocephalic, Atraumatic Eyes: Perrl, EOMI ENT: Moist mucous membranes, No rhinorrhea Neck: Supple, Nontender Cardiovascular: Regular rate, Regular rhythm, No murmurs Respiratory: No distress, CTA bilaterally, Chest nontender Abdomen: Soft, Nontender, Nondistended, Normal bowel sounds Back: Nontender, Normal Inspection Extremities: Nontender, No edema Skin: Normal color, No rash Neurological: Alert, Oriented x3, Cranial nerves II-XII grossly intact, Normal Strength, Normal Sensation Psychological: Normal affect, Normal Mood Diagnostic/Tx/Re-eval Laboratory Last Values WBC 8.7 K/mm3 (4.4-11.0) 10/07/20 19:50 RBC 5.01 M/mm3 (4.6-6.2) 10/07/20 19:50 Hgb 14.6 g/dL (13.0-16.5) 10/07/20 19:50 Hct 44.1 % (40-54) 10/07/20 19:50 MCV 88.0 fL (80-94) 10/07/20 19:50 MCH 29.1 pg (27.0-32.0) 10/07/20 19:50 MCHC 33.1 g/dL (32-36) 10/07/20 19:50 RDW Std Deviation 40.6 fl (35.1-43.9) 10/07/20 19:50 RDW Coeff of Floyd 12.6 % (11.6-14.6) 10/07/20 19:50 Plt Count 243 K/mm3 (150-450) 10/07/20 19:50 MPV 9.2 fl (6.2-12.0) 10/07/20 19:50 Immature Gran % (Auto) 0.300 % (0.0-0.9) 10/07/20 19:50 Neut % (Auto) 76.8 % (47-70) H 10/07/20 19:50 Lymph % (Auto) 15.8 % (19-41) L 10/07/20 19:50 [place] % (Auto) 5.9 % (0-10) 10/07/20 19:50 Eos % (Auto) 0.6 % (0-5) 10/07/20 19:50 Baso % (Auto) 0.6 % (0-1) 10/07/20 19:50 Absolute Neuts (auto) 6.7 X10^3/uL (2.0-7.7) 10/07/20 19:50 Absolute Lymphs (auto) 1.37 X10^3/uL (0.83-4.51) 10/07/20 19:50 Nucleated RBC % 0 % (0-5) 10/07/20 19:50 Sodium 143 mmol/L (136-145) 10/07/20 19:50 Potassium 3.7 mmol/L (3.5-5.1) 10/07/20 19:50 Chloride 109 mmol/L (98-107) H 10/07/20 19:50 Carbon Dioxide 31.0 mmol/L (21.0-32.0) 10/07/20 19:50 Anion Gap 3 (5-15) L 10/07/20 19:50 BUN 6 mg/dL (7-18) L 10/07/20 19:50 Creatinine 0.74 mg/dL (0.70-1.30) 10/07/20 19:50 Estim Creat Clear Calc 132.98 ml/min 10/07/20 19:50 Est GFR (MDRD) Af Amer 160 mL/min (>60) 10/07/20 19:50 Est GFR (MDRD) Non-Af 132 mL/min (>60) 10/07/20 19:50 BUN/Creatinine Ratio 8.1 RATIO (10-20) L 10/07/20 19:50 Glucose 101 mg/dL (74-106) 10/07/20 19:50 Calcium 8.3 mg/dL (8.5-10.1) L 10/07/20 19:50 Total Bilirubin 0.30 mg/dL (0.20-1.00) 10/07/20 19:50 AST 22 U/L (15-37) 10/07/20 19:50 ALT 25 U/L (16-61) 10/07/20 19:50 Alkaline Phosphatase 50 U/L (45-117) 10/07/20 19:50 Total Protein 5.8 g/dL (6.4-8.2) L 10/07/20 19:50 Albumin 3.3 g/dL (3.2-5.0) 10/07/20 19:50 Globulin 2.5 g/dL (2.2-4.2) 10/07/20 19:50 Albumin/Globulin Ratio 1.3 RATIO (0.9-2.4) 10/07/20 19:50 Urine Opiates Screen NEGATIVE (< 300 ng/mL) 10/07/20 19:50 Urine Methadone Screen NEGATIVE (< 300 ng/mL) 10/07/20 19:50 Ur Barbiturates Screen NEGATIVE (< 200 ng/mL) 10/07/20 19:50 Ur Phencyclidine Scrn NEGATIVE (< 25 ng/mL) 10/07/20 19:50 Ur Amphetamines Screen NEGATIVE (<1000 ng/mL) 10/07/20 19:50 U Methamphetamin-MDMA NEGATIVE (< 500 ng/mL) 10/07/20 19:50 U Benzodiazepines Scrn NEGATIVE (< 200 ng/mL) 10/07/20 19:50 Urine Cocaine Screen POSITIVE (< 300 ng/mL) H 10/07/20 19:50 U Cannabinoids Screen NEGATIVE (< 50 ng/mL) 10/07/20 19:50 Ur Drug Screen Comment 10/07/20 19:50 - Medical Decision Making Opioid addiction order set was used. I will contact the hospitalist for admission. ED Disposition - Plan for ED Patient: Disposition: Acute Care Hospital [facility] Diagnosis: Opioid withdrawal Referrals: Care Physician,No Primary [Primary Care Provider] -
[2020-10-07 19:38] VITALS: BMI 18.7
[2020-10-07 19:58] LABS: Absolute Lymphocyte Count 1.37 X10^3/uL (0.83-4.51); Absolute Neutrophil Count 6.7 X10^3/uL (2.0-7.7); Basophil# 0.05 X10^3/uL; Basophil% 0.6 % (0-1); Eosinophil# 0.05 X10^3/uL; Eosinophils% 0.6 % (0-5); Hematocrit 44.1 % (40-54); Hemoglobin 14.6 g/dL (13.0-16.5); Lymphocyte # 1.37 X10^3/ul (4.0); Lymphocyte % 15.8 % (19-41); Mean Corp Hgb Conc 33.1 g/dL (32-36); Mean Corpuscular Hgb 29.1 pg (27.0-32.0); Mean Platelet Vol. 9.2 fl (6.2-12.0); Monocyte# 0.51 X10^3/uL; Monocyte% 5.9 % (0-10); NRBC Flagged by Analyzer 0 % (0-5); Neutrophil # 6.68 X10^3/uL (2.7-7.7); Neutrophil % 76.8 % (47-70); Platelet Count 243 K/mm3 (150-450); RBC Distribution Width CV 12.6 % (11.6-14.6); RBC Distribution Width SD 40.6 fl (35.1-43.9); Red Blood Count 5.01 M/mm3 (4.6-6.2); White Blood Count 8.7 K/mm3 (4.4-11.0)
--- NOTE | 2020-10-07 20:03 | CM.ED ---
SOCIAL WORK Reason for Consult: Substance Abuse- requesting detox from fentanyl Patient presents to [facility] ER requesting detox from fentanyl. Patient reports last use was at 2pm today. Patient states has been using since July. Patient reports has already been in contact with [facility]. Call to [facility] Treatment NavigatorJames to update on pending admission to [facility]. Selam to be in tomorrow to complete assessment. Plan: Admit to [facility] Emily. 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
[2020-10-07 20:11] LABS: Amphetamine Urine VISTA NEGATIVE (<1000 ng/mL); Barbiturate Urine VISTA NEGATIVE (< 200 ng/mL); Benzodiazepine Urine VISTA NEGATIVE (< 200 ng/mL); Cocaine Urine VISTA POSITIVE (< 300 ng/mL); Ecstacy Urine VISTA NEGATIVE (< 500 ng/mL); Methadone Urine VISTA NEGATIVE (< 300 ng/mL); PCP Urine VISTA NEGATIVE (< 25 ng/mL); THC Urine VISTA NEGATIVE (< 50 ng/mL); Vista UDS pH Range 7
[2020-10-07 20:15] LABS: ALB/GLOB Ratio 1.3 RATIO (0.9-2.4); AST(SGOT) 22 U/L (15-37); Alanine Aminotransfer ALT/SGPT 25 U/L (16-61); Albumin, Serum 3.3 g/dL (3.2-5.0); Alkaline Phosphatase 50 U/L (45-117); Anion Gap 3 (5-15); BUN 6 mg/dL (7-18); BUN/Creat Ratio 8.1 RATIO (10-20); Calcium,Total 8.3 mg/dL (8.5-10.1); Chloride 109 mmol/L (98-107); Creatinine, Serum 0.74 mg/dL (0.70-1.30); EST Glomerular Filtration Rate 132 mL/min (>60); Est Glom Filt Rate - Afr Amer 160 mL/min (>60); Estimated Creatinine Clearance 132.98 ml/min; Globulin 2.5 g/dL (2.2-4.2); Glucose 101 mg/dL (74-106); Potassium 3.7 mmol/L (3.5-5.1); Protein, Total 5.8 g/dL (6.4-8.2); Sodium Level 143 mmol/L (136-145)
--- NOTE | 2020-10-07 20:46 | PCM.HP.STD ---
Problem List (1) Opioid dependence Status: Acute (2) Opioid withdrawal Status: Acute (3) Acute opioid withdrawal Status: Acute History of Present Illness Date of Admission: 10/07/20 Chief Complaint: withdrawal symptoms The patient is a 30 year old M with a significant history of opioid abuse who presents to the emergency department with desire for detoxification and with withdrawal symptoms.. His withdrawal symptoms started one to two hours before presentation. His withdrawal symptoms are watery eyes; running nose; anxiety; and restless legs He was at our hospital in March 2020 for detox. He was cleaned for a while but started using again in June 2020. His plan is to follow up with 180 after discharge. Past Medical History Medical History: Medical History (Last Updated 10/07/20 @ 20:[address] Jorge Valera MD) Denies previous medical history Allergies No Known Allergies Allergy (Verified 10/07/20 18:32) Home Medications: Ambulatory Orders Medication Instructions Recorded NK 04/18/20 Surgical History: no surgical history Smoking Status: Current some day smoker Tobacco Use: Cigarettes Alcohol: Rare Drugs: Heroin, Marijuana, - - Fentanyl - *Family History Maternal History Items: Cancer, - - His mother is a recovery alcoholic. Paternal History Items: Cancer - His father had testicular cancer. Review of Systems Constitutional: Denies: Chills, Fever, Weight Change HEENT: Denies: Head Aches, Sinus Congestion, Sinus Drainage Cardiovascular: Denies: Chest Pain, Palpitations Respiratory: Denies: Cough, Shortness of breath at rest, Sputum production Gastrointestinal: Denies: Abdominal Pain, Nausea, Vomiting Genitourinary: Denies: Dysuria Musculoskeletal: Denies: Joint Pain, Joint Tenderness Skin: Denies: Rash, Wounds Neurological: Denies: Numbness, Tingling, Focal weakness Psychiatric: Reports: Anxiety. Denies: Depression, Homicidal Ideations, Suicidal Ideations Hematologic/ Lymphatic: Denies: Easy Bruising, Easy Bleeding VTE Information - Inpt Only VTE Present on Admission: No VTE Mechan Device Prophylaxis: None VTE Pharm Prophylaxis ordered?: No Reason prophylaxis not ordered:: Treatment Not Indicated - Low risk; encourage to ambulate Patient Problems: Active and Suspected Problems (Last Updated 10/07/20 @ 20:[address] Jorge Valera MD) Opioid dependence (Acute) Acute opioid withdrawal (Acute) Opioid withdrawal (Acute) - Physical Exam Vitals/I&O's: Vital Signs Temp Pulse Resp BP Pulse Ox 97.4 F L 94 16 140/77 H 100 10/07/20 18:33 10/07/20 18:33 10/07/20 18:33 10/07/20 18:33 10/07/20 18:33 Oxygen Delivery Method Room Air Weight: 64.41 kg Body Mass Index (BMI) 18.7 General: Alert, Oriented x3, Cooperative HEENT: Atraumatic, PERRLA, EOMI, Normocephalic Neck: Supple, No JVD, Negative Carotid Bruits Lungs: Clear to auscultation, Normal air movement Cardiovascular: Regular rate, Normal S1, Normal S2, No murmurs Abdomen: Bowel Sounds Present, Soft, Non Tender Extremities: No edema, Capillary Refill Less than 3 Seconds Skin: No rashes, No breakdown Musculoskeletal: No Tenderness to Palpation of Joints or Extremities Neurological: Cranial nerves II-XII grossly intact Psych/Mental Status: Normal Affect, Appropriate Laboratory Results 10/07/20 19:50: WBC 8.7, RBC 5.01, Hgb 14.6, Hct 44.1, MCV 88.0, MCH 29.1, MCHC 33.1, RDW Std Deviation 40.6, RDW Coeff of Floyd 12.6, Plt Count 243, MPV 9.2, Immature Gran % (Auto) 0.300, Neut % (Auto) 76.8 H, Lymph % (Auto) 15.8 L, [place] % (Auto) 5.9, Eos % (Auto) 0.6, Baso % (Auto) 0.6, Absolute Neuts (auto) 6.7, Absolute Lymphs (auto) 1.37, Nucleated RBC % 0 10/07/20 19:50: Sodium 143, Potassium 3.7, Chloride 109 H, Carbon Dioxide 31.0, Anion Gap 3 L, BUN 6 L, Creatinine 0.74, Estim Creat Clear Calc 132.98, Est GFR (MDRD) Af Amer 160, Est GFR (MDRD) Non-Af 132, BUN/Creatinine Ratio 8.1 L, Glucose 101, Calcium 8.3 L, Total Bilirubin 0.30, AST 22, ALT 25, Alkaline Phosphatase 50, Total Protein 5.8 L, Albumin 3.3, Globulin 2.5, Albumin/Globulin Ratio 1.3 10/07/20 19:50: Ethyl Alcohol 4.0 10/07/20 19:50: Urine Opiates Screen NEGATIVE, Urine Methadone Screen NEGATIVE, Ur Barbiturates Screen NEGATIVE, Ur Phencyclidine Scrn NEGATIVE, Ur Amphetamines Screen NEGATIVE, U Methamphetamin-MDMA NEGATIVE, U Benzodiazepines Scrn NEGATIVE, Urine Cocaine Screen POSITIVE H, U Cannabinoids Screen NEGATIVE, Ur Drug Screen Comment Assessment/Plan All Active Problems (Last Updated 10/07/20 @ 20:[address] Jorge Valera MD) Opioid dependence (Acute) Acute opioid withdrawal (Acute) Opioid withdrawal (Acute) The patient is a 30 year old M with a significant history of opioid use who presents emergency department with drug withdrawal symptoms and desire for detoxification Opioid dependence and withdrawal Patient be started on Subutex and other adjunctive medications: Gabapentin as needed; dicyclomine as needed; Vistaril as needed; methocarbamol as needed; clonidine as needed; Imodium as needed; trazodone as needed and Zofran as needed. Monitor COWS and CINA score Tobacco Abuse Occasionally smokes some cigarettes here and there. Counselled. DVT prophylaxis Low risk Encourage to ambulate Inpatient E&M: 66239 Init Hosp L2
[2020-10-07 20:57] VITALS: BP 113/68; PULSE 91; RESP 18; TEMP 37.3; O2SAT 100
[2020-10-07 22:09] VITALS: BMI 17.6
[2020-10-07] MEDS: cloNIDine HCl 0.1 MG Tablet PO (22:38)
[2020-10-07] MEDS: traZODone 100 MG Tablet PO (22:38)
[2020-10-07] MEDS: Gabapentin 300 MG Capsule PO (22:38)
[2020-10-07] MEDS: Methocarbamol 750 MG Tablet 1500 MG PO (22:38)
[2020-10-07] MEDS: Buprenorphine HCl 2 MG TAB.SUBL SL (22:38)
[2020-10-08] VITALS (7 sets, daily range): BP systolic 105–124; BP diastolic 58–80; PULSE 58–97; RESP 14–18; TEMP 36.5–37.4; O2SAT 94–100
[2020-10-08] MEDS: hydrOXYzine PAM 25 MG Capsule 50 MG PO (02:09)
[2020-10-08] MEDS: Methocarbamol 750 MG Tablet 1500 MG PO ×2 (05:55→12:26)
[2020-10-08] MEDS: Buprenorphine HCl 2 MG TAB.SUBL SL ×3 (05:56→22:00)
--- NOTE | 2020-10-08 08:46 | PCM.PROGNOTE ---
Patient Problems: Active and Suspected Problems (Last Updated 10/07/20 @ 20:[address] Jorge Valera MD) Acute opioid withdrawal (Acute) Subjective: Chief complaint: Follow-up after admission for acute opioid withdrawal. Patient seen and examined. No acute events overnight. Today, he complains of some muscle aches and pains, and exhibited has been improving after Subutex. His vital signs are stable. - Physical Exam Vitals/I&O's: Vital Signs Temp Pulse Resp BP Pulse Ox 97.9 F 69 16 105/58 L 96 10/08/20 07:11 10/08/20 07:11 10/08/20 07:11 10/08/20 07:11 10/08/20 07:11 Oxygen Delivery Method Room Air Weight: 134 lb 4.184 oz Body Mass Index (BMI) 17.6 Intake and Output for Last 24 Hours 10/06/20 10/07/20 10/08/20 23:59 23:59 23:59 Intake Total 322 / 322 350 / 350 Balance 322 / 322 350 / 350 General: Alert, Oriented x3, Cooperative, No apparent distress HEENT: Atraumatic, PERRLA, EOMI, Normocephalic Oral: Moist Mucosa, No Gingival or Mucosal Lesions/ Ulcerations Neck: Supple, No JVD, Negative Carotid Bruits, Trachea Midline, Thyroid Normal Size and Texture Lungs: Clear to auscultation, Normal air movement, No rhonchi, No wheeze, No rales Cardiovascular: Regular rate, Regular Rhythm, Normal S1, Normal S2, PMI Normal Abdomen: Bowel Sounds Present, Soft, Non Tender, Non-Distended, No Hepato-splenomegaly Extremities: No clubbing, No cyanosis, No edema Skin: No rashes, No breakdown Lymphatic: No Cervical, Supraclavicular, or Inguinal Adenopathy Neurological: Cranial nerves II-XII grossly intact, Neuro grossly intact Psych/Mental Status: Normal Affect, Appropriate, Alert and oriented to time, place, person, mood and affect Laboratory Results 10/07/20 19:50: WBC 8.7, RBC 5.01, Hgb 14.6, Hct 44.1, MCV 88.0, MCH 29.1, MCHC 33.1, RDW Std Deviation 40.6, RDW Coeff of Floyd 12.6, Plt Count 243, MPV 9.2, Immature Gran % (Auto) 0.300, Neut % (Auto) 76.8 H, Lymph % (Auto) 15.8 L, [place] % (Auto) 5.9, Eos % (Auto) 0.6, Baso % (Auto) 0.6, Absolute Neuts (auto) 6.7, Absolute Lymphs (auto) 1.37, Nucleated RBC % 0 10/07/20 19:50: Sodium 143, Potassium 3.7, Chloride 109 H, Carbon Dioxide 31.0, Anion Gap 3 L, BUN 6 L, Creatinine 0.74, Estim Creat Clear Calc 132.98, Est GFR (MDRD) Af Amer 160, Est GFR (MDRD) Non-Af 132, BUN/Creatinine Ratio 8.1 L, Glucose 101, Calcium 8.3 L, Total Bilirubin 0.30, AST 22, ALT 25, Alkaline Phosphatase 50, Total Protein 5.8 L, Albumin 3.3, Globulin 2.5, Albumin/Globulin Ratio 1.3 10/07/20 19:50: Ethyl Alcohol 4.0 10/07/20 19:50: Urine Opiates Screen NEGATIVE, Urine Methadone Screen NEGATIVE, Ur Barbiturates Screen NEGATIVE, Ur Phencyclidine Scrn NEGATIVE, Ur Amphetamines Screen NEGATIVE, U Methamphetamin-MDMA NEGATIVE, U Benzodiazepines Scrn NEGATIVE, Urine Cocaine Screen POSITIVE H, U Cannabinoids Screen NEGATIVE, Ur Drug Screen Comment Current Medications Buprenorphine HCl (Buprenorphine Hcl 2 Mg Tab.Subl) 4 mg SL Q8H MARIANA; Taper Stop: 10/10/20 22:29 Last Admin: 10/08/20 05:56 Dose: 4 mg Documented by: Clonidine (Clonidine Hcl 0.1 Mg Tablet) 0.1 mg PO Q8H PRN PRN PRN Reason: RESTLESSNESS Last Admin: 10/07/20 22:38 Dose: 0.1 mg Documented by: Dicyclomine HCl (Dicyclomine 10 Mg Capsule) 20 mg PO Q6H PRN PRN PRN Reason: Abdominal Discomfort Gabapentin (Gabapentin 300 Mg Capsule) 300 mg PO Q8H PRN PRN PRN Reason: moderate to severe anxiety Last Admin: 10/07/20 22:38 Dose: 300 mg Documented by: Hydroxyzine Pamoate (Hydroxyzine Martha 25 Mg Capsule) 50 mg PO Q6H PRN PRN PRN Reason: mild anxiety Last Admin: 10/08/20 02:09 Dose: 50 mg Documented by: Loperamide HCl (Loperamide 2 Mg Capsule) 2 mg PO Q4H PRN PRN PRN Reason: LOOSE STOOLS Methocarbamol (Methocarbamol 750 Mg Tablet) 1,500 mg PO Q6H PRN PRN PRN Reason: MUSCLE SPASM Last Admin: 10/08/20 05:55 Dose: 1,500 mg Documented by: Ondansetron HCl (Ondansetron 8 Mg Tablet) 8 mg PO Q8H PRN PRN PRN Reason: NAUSEA Trazodone HCl (Trazodone 100 Mg Tablet) 100 mg PO QHS PRN PRN PRN Reason: INSOMNIA Last Admin: 10/07/20 22:38 Dose: 100 mg Documented by: Medical Necessity - Tobacco Use Smoking Status: Current some day smoker Tobacco Use: Cigarettes Assessment/Plan All Active Problems (Last Updated 10/07/20 @ 20:[address] Jorge Valera MD) Acute opioid withdrawal (Acute) This is a 30 years old male patient presented to the emergency room requesting admission for acute opioid withdrawal for medical stabilization. #1 acute opiate withdrawal: Patient has been using fentanyl as well as occasional cocaine. Currently, he is on Subutex taper for detox, as needed Catapres, Bentyl, Neurontin, Vistaril, Imodium, methocarbamol, Zofran and trazodone. Routine blood work was unremarkable. LFT was unremarkable. Urine drug screen was positive for cocaine. Blood alcohol was 4. Patient reported some improvement in his symptoms. He is still symptomatic and requires inpatient treatment for withdrawal. Plan to continue same treatment, consult 180 program. #2 tobacco abuse: Nicotine patch if desired. #3 DVT prophylaxis: Low suspicion, no prophylaxis indicated. This note was generated with [employer] dictation software. It may contain incorrect words, spelling, and punctuation that were not noted in checking the note before signing. Inpatient E&M: 81268 Subs Hosp L2
--- NOTE | 2020-10-08 11:10 | ADDICTION ---
This scientific technical writer met with PT in his room to complete ASAM, MSE and DUDIT assessments and to plan for d/c. All assessments completed and faxed to [facility]. Originals placed in PT's chart on ricci. PT plans to followup with [facility] for assessment and treatment and was provided with the walk-in assessment schedule. PT amiable. PT reports that he does not need transportation at d/c.
[2020-10-08] MEDS: Gabapentin 300 MG Capsule PO (15:51)
[2020-10-09 03:00] VITALS: BP 109/74; PULSE 59; RESP 16; TEMP 36.8; O2SAT 100
[2020-10-09] MEDS: Buprenorphine HCl 2 MG TAB.SUBL SL ×3 (05:38→21:54)
--- NOTE | 2020-10-09 08:28 | PN_ITS ---
Patient Problems: Active and Suspected Problems (Last Updated 10/07/20 @ 20:[address] Jorge Valera MD) Acute opioid withdrawal (Acute) Subjective: Chief complaint: Follow-up after admission for acute opioid withdrawal. Patient seen and examined. No acute events overnight. Today, he is feeling much better. He has no muscle aches or pains, still having some anxiety. No other complaints. Vital signs are stable. - Physical Exam Vitals/I&O's: Vital Signs Temp Pulse Resp BP Pulse Ox 98.3 F 59 L 16 109/74 100 10/09/20 03:00 10/09/20 03:00 10/09/20 03:00 10/09/20 03:00 10/09/20 03:00 Oxygen Delivery Method Room Air Weight: 134 lb 4.184 oz Body Mass Index (BMI) 17.6 Intake and Output for Last 24 Hours 10/07/20 10/08/20 10/09/20 23:59 23:59 23:59 Intake Total 322 / 322 350 / 350 1200 / 1200 Balance 322 / 322 350 / 350 1200 / 1200 General: Alert, Oriented x3, Cooperative, No apparent distress HEENT: Atraumatic, PERRLA, EOMI, Normocephalic Oral: Moist Mucosa, No Gingival or Mucosal Lesions/ Ulcerations Neck: Supple, No JVD, Negative Carotid Bruits, Trachea Midline, Thyroid Normal Size and Texture Lungs: Clear to auscultation, Normal air movement, No rhonchi, No wheeze, No rales Cardiovascular: Regular rate, Regular Rhythm, Normal S1, Normal S2, PMI Normal Abdomen: Bowel Sounds Present, Soft, Non Tender, Non-Distended, No Hepato- splenomegaly Extremities: No clubbing, No cyanosis, No edema Skin: No rashes, No breakdown Lymphatic: No Cervical, Supraclavicular, or Inguinal Adenopathy Neurological: Cranial nerves II-XII grossly intact, Neuro grossly intact Psych/Mental Status: Normal Affect, Appropriate, Alert and oriented to time, place, person, mood and affect Current Medications Buprenorphine HCl (Buprenorphine Hcl 2 Mg Tab.Subl) 2 mg SL Q8H [facility]; Taper Stop: 10/10/20 22:29 Last Admin: 10/09/20 05:38 Dose: 2 mg Documented by: Clonidine (Clonidine Hcl 0.1 Mg Tablet) 0.1 mg PO Q8H PRN PRN PRN Reason: RESTLESSNESS Last Admin: 10/07/20 22:38 Dose: 0.1 mg Documented by: Dicyclomine HCl (Dicyclomine 10 Mg Capsule) 20 mg PO Q6H PRN PRN PRN Reason: Abdominal Discomfort Gabapentin (Gabapentin 300 Mg Capsule) 300 mg PO Q8H PRN PRN PRN Reason: moderate to severe anxiety Last Admin: 10/08/20 15:51 Dose: 300 mg Documented by: Hydroxyzine Pamoate (Hydroxyzine Martha 25 Mg Capsule) 50 mg PO Q6H PRN PRN PRN Reason: mild anxiety Last Admin: 10/08/20 02:09 Dose: 50 mg Documented by: Loperamide HCl (Loperamide 2 Mg Capsule) 2 mg PO Q4H PRN PRN PRN Reason: LOOSE STOOLS Methocarbamol (Methocarbamol 750 Mg Tablet) 1,500 mg PO Q6H PRN PRN PRN Reason: MUSCLE SPASM Last Admin: 10/08/20 12:26 Dose: 1,500 mg Documented by: Ondansetron HCl (Ondansetron 8 Mg Tablet) 8 mg PO Q8H PRN PRN PRN Reason: NAUSEA Trazodone HCl (Trazodone 100 Mg Tablet) 100 mg PO QHS PRN PRN PRN Reason: INSOMNIA Last Admin: 10/07/20 22:38 Dose: 100 mg Documented by: Medical Necessity - Tobacco Use Smoking Status: Current some day smoker Tobacco Use: Cigarettes Assessment/Plan All Active Problems (Last Updated 10/07/20 @ 20:[address] Jorge Valera MD) Acute opioid withdrawal (Acute) This is a 30 years old male patient presented to the emergency room requesting admission for acute opioid withdrawal for medical stabilization. #1 acute opiate withdrawal: Remained on Subutex taper for detox, as needed Catapres, Bentyl, Neurontin, Vistaril, Imodium, methocarbamol, Zofran and trazodone. Symptoms has been significantly improving, feels much better. Routine blood work was unremarkable. LFT was unremarkable. Urine drug screen was positive for cocaine. Blood alcohol was 4. He was seen by [facility] and plan for outpatient follow-up and treatment. Continue same treatment, DC home tomorrow. #2 tobacco abuse: Nicotine patch if desired. #3 DVT prophylaxis: Low suspicion, no prophylaxis indicated. This note was generated with [employer] dictation software. It may contain incorrect words, spelling, and punctuation that were not noted in checking the note before signing. Inpatient E&M: 87890 Subs Hosp L2
[2020-10-09 08:34] VITALS: BP 111/61; PULSE 63; RESP 16; TEMP 36.6; O2SAT 97
[2020-10-09 13:56] VITALS: BP 109/71; PULSE 65; RESP 16; TEMP 36.7; O2SAT 98
[2020-10-09] MEDS: Methocarbamol 750 MG Tablet 1500 MG PO (21:54)
[2020-10-09] MEDS: traZODone 100 MG Tablet PO (21:54)
[2020-10-09 21:56] VITALS: BP 113/60; PULSE 58; RESP 16; TEMP 36.7; O2SAT 98
[2020-10-10 01:50] VITALS: BP 108/72; PULSE 62; RESP 16; TEMP 36.7; O2SAT 100
[2020-10-10 08:31] VITALS: BP 105/64; PULSE 60; RESP 16; TEMP 36.1; O2SAT 100
[2020-10-10] MEDS: Methocarbamol 750 MG Tablet 1500 MG PO (08:38)
--- NOTE | 2020-10-10 08:58 | DCINST_ITS ---
- Discharge Diagnoses Current Active Problems: Current Active and Chronic Problems (Last Updated 10/07/20 @ 20:[address] Jorge Valera MD) Opioid dependence (Chronic) Acute opioid withdrawal (Acute) You will use the following diet at home:: Regular Your food should be the consistency of: Regular Discharge Activity: Return to Normal Activity Weight Bearing Status: Full weight bearing Call your doctor if you observe: Fever of 101 or Higher, Shortness of breath, Dizziness, Fainting spells, Chest pain, Increased palpitations (irregular heartbeat), Uncontrolled pain Additional Instructions: Please follow-up with [facility] as scheduled. Allergies/Adverse Reactions: Allergies No Known Allergies Allergy (Verified 10/07/20 18:32) Medications to take at Discharge NK 04/18/20 Primary Care Physician: Care Physician,No Primary [Primary Care Provider] - Please follow up with your Primary Care Physician in: 4-6 weeks. Test Results: Test results from this visit will be discussed in further detail at your follow- up appointment, if applicable.
[2020-10-10] MEDS: Buprenorphine HCl 2 MG TAB.SUBL SL (10:38)
--- NOTE | 2020-10-10 12:42 | DS.PCM_ITS ---
Discharge Date and Diagnosis - Problem List Patient Problems: Active and Suspected Problems (Last Updated 10/07/20 @ 20:[address] Jorge Valera MD) Acute opioid withdrawal (Acute) Date of Admission: 10/07/20 Date of Discharge: 10/10/20 - Primary Discharge Diagnosis Acute Problems: Active Problems (Last Updated 10/07/20 @ 20:[address] Jorge Valera MD) Acute opioid withdrawal admitted for medical stabilization. - Secondary Discharge Diagnosis Chronic Problems: Chronic Problems (Last Updated 10/07/20 @ 20:[address] Jorge Valera MD) Opioid dependence (Chronic) Hospital Course and Treatment Operations: None Procedures: None Summary of Care Provided: Patient seen and examined on the day of discharge and appeared to be stable to be discharged home. He has no more significant symptoms of withdrawal. His vital signs are stable. The patient is a 30 year old M presented to the emergency room requesting admission for acute opioid withdrawal for medical stabilization. Patient has been using fentanyl and admitted using occasional cocaine as well. His routine blood work was unremarkable. LFT was normal. Urine drug screen was positive for cocaine. Blood alcohol level was 4. He was admitted to the [facility] floor, started on tapering Subutex, as needed Bentyl, Neurontin, Vistaril, Imodium, methocarbamol, Zofran and trazodone. His vital signs were stable throughout admission. With above-mentioned treatment, patient symptoms improved and he feels much better. He was evaluated by [facility] and plan to follow-up with them as outpatient. Patient discharged home in a stable medical condition, plan to follow-up with [facility], recommended follow-up with PCP in 4 to 6 weeks. Patient Problems: Active and Suspected Problems (Last Updated 10/07/20 @ 20:[address] Jorge Valera MD) Acute opioid withdrawal (Acute) - Physical Exam Vitals/I&O's: Vital Signs Temp Pulse Resp BP Pulse Ox 97.0 F L 60 16 105/64 100 10/10/20 08:31 10/10/20 08:31 10/10/20 08:31 10/10/20 08:31 10/10/20 08:31 Oxygen Delivery Method Room Air Weight: 134 lb 4.184 oz Body Mass Index (BMI) 17.6 Intake and Output for Last 24 Hours 10/08/20 10/09/20 10/10/20 23:59 23:59 23:59 Intake Total 350 / 350 1200 / 1600 400 / 400 Balance 350 / 350 1200 / 1600 400 / 400 General: Alert, Oriented x3, Cooperative, No apparent distress HEENT: Atraumatic, PERRLA, EOMI, Normocephalic Oral: Moist Mucosa, No Gingival or Mucosal Lesions/ Ulcerations Neck: Supple, No JVD, Negative Carotid Bruits, Trachea Midline, Thyroid Normal Size and Texture Lungs: Clear to auscultation, Normal air movement, No rhonchi, No wheeze, No rales Cardiovascular: Regular rate, Regular Rhythm, Normal S1, Normal S2, PMI Normal Abdomen: Bowel Sounds Present, Soft, Non Tender, Non-Distended, No Hepato- splenomegaly Extremities: No clubbing, No cyanosis, No edema Skin: No rashes, No breakdown Lymphatic: No Cervical, Supraclavicular, or Inguinal Adenopathy Neurological: Cranial nerves II-XII grossly intact, Neuro grossly intact Psych/Mental Status: Normal Affect, Appropriate Discharge Activity: Return to Normal Activity Weight Bearing Status: Full weight bearing Call your doctor if you observe: Fever of 101 or Higher, Shortness of breath, Dizziness, Fainting spells, Chest pain, Increased palpitations (irregular heartbeat), Uncontrolled pain Home Medications: Medications to take at Discharge NK 04/18/20 Primary Care Physician: Care Physician,No Primary [Primary Care Provider] - Please follow up with your Primary Care Physician in: 4-6 weeks. Disposition: Home Minutes spent on discharge:: 26 Patient Condition:: Stable Medical Necessity - Tobacco Use Smoking Status: Current some day smoker Tobacco Use: Cigarettes Meaningful Use Info Meaningful Use Diagnoses (Choose all that apply): None applicable Inpatient E&M: 47121 Disch Hosp
== END 2020-10-10 11:50 | disposition home or self-care (01) | DRG 773 ==
LOC: ED 19:12 → MS3 10-08 07:07
PROVIDERS: Admitting Provider Hospitalist; Emergency Provider Emergency Medicine; Visit Provider Hospitalist
DX: F11.23 Opioid dependence with withdrawal (principal); F14.93 Cocaine use, unspecified with withdrawal; F17.210 Nicotine dependence, cigarettes, uncomplicated
CPT/HCPCS: 80053; 80307; 82077; 85025; 99283; H0012

== ENCOUNTER 2020-11-16 14:12 | Inpatient (IN) | payer MEDICAID, SELFPAY ==
[2020-11-16 14:14] VITALS: BP 130/62; PULSE 86; RESP 20; TEMP 36.8; O2SAT 97; BMI 18.4
--- NOTE | 2020-11-16 14:38 | ED.DCSUM_ITS ---
History of Present Illness Chief Complaint: Substance Abuse Informant: Patient Onset: Days Context: Sudden Onset Timing: Continuous Quality: Colicky abdominal pain with generalized aches and malaise Location: GI and generalized Current Severity: Moderate Maximum Severity: Moderate Worsened by: Attempt to self detox Relieved by: Nothing Associated Symptoms: Nausea, vomiting, abdominal pain, diarrhea, generalized aches Narrative: Patient is a 30-year-old male who is been snorting fentanyl for the past 1 year. He is presently using half a gram a day. He presents for detox and is complaining of nausea, vomiting and diarrhea. Grandmother states she is having profuse diarrhea. He also complains of malaise. He does not inject. He denies other drug use. He denies history of hepatitis. He denies fever, chills night sweats. He denies weight gain or weight loss. He denies ocular, visual auditory symptoms. He denies cardiac or respiratory symptoms. He denies urologic symptoms. He denies neurologic symptoms. Prior similar symptoms: No Recent Illness/Hospitalization: No - Past Medical History (1) Opioid dependence Status: Chronic Past Medical History - Allergies and Home Meds Allergies/Adverse Reactions: Allergies No Known Allergies Allergy (Verified 11/16/20 14:12) Primary Care Physician: Care Physician,No Primary [Primary Care Provider] - Surgical History: no surgical history Lives: With Family Smoking Status: Current some day smoker Alcohol: Rare Drugs: - - Fentanyl - Family History Maternal Family History: Reports: Cancer, - - His mother is a recovery alcoholic. Paternal Family History: Reports: Cancer - His father had testicular cancer. Review of Systems General: Reports: Malaise. Denies: Chills, Fever, Subjective Eyes: Denies: Visual changes - bilaterally, Blurred Vision - bilaterally ENT: Denies: Rhinorrhea, Sore throat Cardiovascular: Denies: Chest pain, Palpitations Respiratory: Denies: Dyspnea, Cough, Dyspnea on exertion Gastrointestinal: Reports: Abdominal pain, Nausea, Vomiting, Diarrhea. Denies: Melena, Hematochezia Genitourinary: Denies: Dysuria, Hematuria, Frequency Musculoskeletal: Reports: Myalgias. Denies: Arthralgias, Neck pain, Back pain, Swelling, Extremity Pain, -, - Skin: Denies: Rash, Wounds Neurological: Denies: Headache, Weakness Psych: Reports: Anxiety Endocrine: Denies: Polyuria, Polydipsia Hematologic: Denies: Easy bruising, Easy bleeding Physical Exam Vital Signs/Narrative: Vital Signs Temp Pulse Resp BP Pulse Ox 11/16/20 14:14 98.2 F 86 20 H 130/62 H 97 Inital Vital Signs reviewed: Yes General: Well nourished, Well developed, No Acute Distress Head: Normocephalic, Atraumatic Eyes: Perrl, EOMI ENT: No rhinorrhea, Dry mucous membranes Neck: Supple, Nontender Cardiovascular: Regular rate, Regular rhythm, No murmurs, Normal S1, Normal S2 Respiratory: No distress, CTA bilaterally, Chest nontender Abdomen: Soft, Nondistended, Normal bowel sounds, Tender Back: Nontender, Normal Inspection Extremities: Nontender, No edema Skin: Normal color, No rash Neurological: Alert, Oriented x3, Cranial nerves II-XII grossly intact, Normal Strength, Normal Sensation Psychological: Normal affect, Normal Mood Diagnostic/Tx/Re-eval Laboratory Results 11/16/20 11/16/20 11/16/20 15:10 15:10 15:10 WBC 15.3 H RBC 6.05 Hgb 17.8 H Hct 50.3 MCV 83.1 MCH 29.4 MCHC 35.4 RDW Std Deviation 36.6 RDW Coeff of Floyd 12.0 Plt Count 335 MPV 9.5 Immature Gran % (Auto) 0.500 Neut % (Auto) 90.4 H Lymph % (Auto) 4.7 L [place] % (Auto) 4.3 Eos % (Auto) 0.0 Baso % (Auto) 0.1 Absolute Neuts (auto) 13.9 H Absolute Lymphs (auto) 0.72 L Nucleated RBC % 0 Sodium 139 Potassium 2.8 L Chloride 102 Carbon Dioxide 30.0 Anion Gap 7 BUN 21 H Creatinine 0.99 Estim Creat Clear Calc 98.00 Est GFR (MDRD) Af Amer 114 Est GFR (MDRD) Non-Af 95 BUN/Creatinine Ratio 21.3 H Glucose 126 H Calcium 10.0 Total Bilirubin 0.90 AST 9 L ALT 21 Alkaline Phosphatase 63 Total Protein 8.9 H Albumin 5.1 H Globulin 3.8 Albumin/Globulin Ratio 1.3 Ur Drug Screen Comment Ethyl Alcohol < 3.0 11/16/20 15:49 WBC RBC Hgb Hct MCV MCH MCHC RDW Std Deviation RDW Coeff of [place] Plt Count MPV Immature Gran % (Auto) Neut % (Auto) Lymph % (Auto) [place] % (Auto) Eos % (Auto) Baso % (Auto) Absolute Neuts (auto) Absolute Lymphs (auto) Nucleated RBC % Sodium Potassium Chloride Carbon Dioxide Anion Gap BUN Creatinine Estim Creat Clear Calc Est GFR (MDRD) Af Amer Est GFR (MDRD) Non-Af BUN/Creatinine Ratio Glucose Calcium Total Bilirubin AST ALT Alkaline Phosphatase Total Protein Albumin Globulin Albumin/Globulin Ratio Ur Drug Screen Comment Ethyl Alcohol Prior work-up is unremarkable including electrolytes. Patient be admitted. - Medical Decision Making The patient is dehydrated. Will obtain 1 L of normal saline. Treated with antiemetic and antidiarrheal medication. Will obtain clearing labs for detox. ED Disposition - Plan for ED Patient: Disposition: Acute Care Hospital [facility] Diagnosis: Opiate withdrawal Referrals: Care Physician,No Primary [Primary Care Provider] -
[2020-11-16] MEDS: Ondansetron 4 MG/2 ML Vial IV (15:19)
[2020-11-16] MEDS: 0.9% Normal Saline 1,000 ML 1000 ML IV (15:19)
[2020-11-16] MEDS: Loperamide 2 MG Capsule 4 MG PO (15:20)
[2020-11-16] MEDS: Dicyclomine 10 MG Capsule 20 MG PO ×2 (15:20→17:57)
[2020-11-16 15:21] LABS: Absolute Lymphocyte Count 0.72 X10^3/uL (0.83-4.51); Absolute Neutrophil Count 13.9 X10^3/uL (2.0-7.7); Basophil# 0.02 X10^3/uL; Basophil% 0.1 % (0-1); Hematocrit 50.3 % (40-54); Hemoglobin 17.8 g/dL (13.0-16.5); Lymphocyte # 0.72 X10^3/ul (4.0); Lymphocyte % 4.7 % (19-41); Mean Corp Hgb Conc 35.4 g/dL (32-36); Mean Corpuscular Hgb 29.4 pg (27.0-32.0); Mean Corpuscular Volume 83.1 fL (80-94); Mean Platelet Vol. 9.5 fl (6.2-12.0); Monocyte# 0.66 X10^3/uL; Monocyte% 4.3 % (0-10); NRBC Flagged by Analyzer 0 % (0-5); Neutrophil # 13.86 X10^3/uL (2.7-7.7); Neutrophil % 90.4 % (47-70); Platelet Count 335 K/mm3 (150-450); RBC Distribution Width SD 36.6 fl (35.1-43.9); Red Blood Count 6.05 M/mm3 (4.6-6.2); White Blood Count 15.3 K/mm3 (4.4-11.0)
[2020-11-16 15:36] LABS: ALB/GLOB Ratio 1.3 RATIO (0.9-2.4); AST(SGOT) 9 U/L (15-37); Alanine Aminotransfer ALT/SGPT 21 U/L (16-61); Albumin, Serum 5.1 g/dL (3.2-5.0); Alkaline Phosphatase 63 U/L (45-117); Anion Gap 7 (5-15); BUN 21 mg/dL (7-18); BUN/Creat Ratio 21.3 RATIO (10-20); Chloride 102 mmol/L (98-107); Creatinine, Serum 0.99 mg/dL (0.70-1.30); EST Glomerular Filtration Rate 95 mL/min (>60); Est Glom Filt Rate - Afr Amer 114 mL/min (>60); Globulin 3.8 g/dL (2.2-4.2); Glucose 126 mg/dL (74-106); Potassium 2.8 mmol/L (3.5-5.1); Protein, Total 8.9 g/dL (6.4-8.2); Sodium Level 139 mmol/L (136-145)
[2020-11-16 15:57] LABS: Alcohol, Blood (Medical)-Serum < 3.0 mg/dL
[2020-11-16 16:15] LABS: Amphetamine Urine VISTA NEGATIVE (<1000 ng/mL); Barbiturate Urine VISTA NEGATIVE (< 200 ng/mL); Benzodiazepine Urine VISTA NEGATIVE (< 200 ng/mL); Cocaine Urine VISTA NEGATIVE (< 300 ng/mL); Ecstacy Urine VISTA NEGATIVE (< 500 ng/mL); Methadone Urine VISTA NEGATIVE (< 300 ng/mL); PCP Urine VISTA NEGATIVE (< 25 ng/mL); THC Urine VISTA NEGATIVE (< 50 ng/mL); Vista UDS pH Range 6
--- NOTE | 2020-11-16 16:24 | PCM.HP.STD ---
History of Present Illness Date of Admission: 11/16/20 Chief Complaint: Diarrhea and fentanyl abuse The patient is a 30 year old M with a PMH as below presents to the hospital with colicky abdominal pain and generalized aches and pains secondary to trying to self detox. He has been snorting fentanyl for about the last year has been using half a gram a day, he recently relapsed because his mother of cancer on October 25. He stopped using over the last couple of days to try to get his drug use under control and developed significant diarrhea as well as just not feeling well. In the ER vital signs are unremarkable, lab work demonstrated a leukocytosis to 15 with a normal renal function as well as a potassium of 2.8. Past Medical History Past Medical History (Chronic Problems): Chronic Problems (Last Updated 10/07/20 @ 20:[address] Jorge Valera MD) Opioid dependence (Chronic) Medical History: Medical History (Last Updated 10/07/20 @ 20:[address] Jorge Valera MD) Denies previous medical history Allergies No Known Allergies Allergy (Verified 11/16/20 14:12) Home Medications: Ambulatory Orders Medication Instructions Recorded NK 04/18/20 Surgical History: no surgical history Lives: With Family Smoking Status: Current every day smoker Tobacco Use: Cigarettes Alcohol: Rare Drugs: - - Fentanyl - *Family History Maternal History Items: Cancer, - - His mother is a recovery alcoholic. Paternal History Items: Cancer - His father had testicular cancer. Review of Systems Constitutional: Reports: Malaise. Denies: Chills, Fever, Weight Change HEENT: Denies: Head Aches, Sinus Congestion, Sinus Drainage Cardiovascular: Denies: Chest Pain, Palpitations Respiratory: Denies: Cough, Shortness of breath at rest, Sputum production Gastrointestinal: Reports: Abdominal Pain, Diarrhea, Nausea, Vomiting Genitourinary: Denies: Dysuria Musculoskeletal: Denies: Joint Pain, Joint Tenderness Skin: Denies: Rash, Wounds Neurological: Denies: Numbness, Tingling, Focal weakness Psychiatric: Reports: Anxiety. Denies: Depression Hematologic/ Lymphatic: Denies: Easy Bruising, Easy Bleeding VTE Information - Inpt Only VTE Present on Admission: No Patient Problems: Active and Suspected Problems (Last Updated 10/07/20 @ 20:[address] Jorge Valera MD) Opiate withdrawal (Acute) - Physical Exam Vitals/I&O's: Vital Signs Temp Pulse Resp BP Pulse Ox 98.2 F 86 20 H 130/62 H 97 11/16/20 14:14 11/16/20 14:14 11/16/20 14:14 11/16/20 14:14 11/16/20 14:14 Oxygen Delivery Method Room Air Weight: 140 lb Body Mass Index (BMI) 18.4 General: Alert, Oriented x3, Cooperative, No apparent distress HEENT: Atraumatic, PERRLA, EOMI, Normocephalic Oral: Moist Mucosa Neck: Supple, No JVD Lungs: Clear to auscultation, Normal air movement, No rhonchi, No wheeze, No rales Cardiovascular: Regular rate, Regular Rhythm, Normal S1, Normal S2, No murmurs Abdomen: Soft, Non Tender, Non-Distended, No Hepato-splenomegaly Extremities: No edema, Capillary Refill Less than 3 Seconds Skin: No rashes, No breakdown Neurological: Neuro grossly intact, Sensory exam intact to light touch and pain Psych/Mental Status: Anxious, Restless Laboratory Results 11/16/20 15:10: WBC 15.3 H, RBC 6.05, Hgb 17.8 H, Hct 50.3, MCV 83.1, MCH 29.4, MCHC 35.4, RDW Std Deviation 36.6, RDW Coeff of Floyd 12.0, Plt Count 335, MPV 9.5, Immature Gran % (Auto) 0.500, Neut % (Auto) 90.4 H, Lymph % (Auto) 4.7 L, [place] % (Auto) 4.3, Eos % (Auto) 0.0, Baso % (Auto) 0.1, Absolute Neuts (auto) 13.9 H, Absolute Lymphs (auto) 0.72 L, Nucleated RBC % 0 11/16/20 15:10: Sodium 139, Potassium 2.8 L, Chloride 102, Carbon Dioxide 30.0, Anion Gap 7, BUN 21 H, Creatinine 0.99, Estim Creat Clear Calc 98.00, Est GFR (MDRD) Af Amer 114, Est GFR (MDRD) Non-Af 95, BUN/Creatinine Ratio 21.3 H, Glucose 126 H, Calcium 10.0, Total Bilirubin 0.90, AST 9 L, ALT 21, Alkaline Phosphatase 63, Total Protein 8.9 H, Albumin 5.1 H, Globulin 3.8, Albumin/Globulin Ratio 1.3 11/16/20 15:10: Ethyl Alcohol < 3.0 11/16/20 15:49: Urine Opiates Screen NEGATIVE, Urine Methadone Screen NEGATIVE, Ur Barbiturates Screen NEGATIVE, Ur Phencyclidine Scrn NEGATIVE, Ur Amphetamines Screen NEGATIVE, U Methamphetamin-MDMA NEGATIVE, U Benzodiazepines Scrn NEGATIVE, Urine Cocaine Screen NEGATIVE, U Cannabinoids Screen NEGATIVE, Ur Drug Screen Comment Assessment/Plan All Active Problems (Last Updated 10/07/20 @ 20:[address] Jorge Valera MD) Opiate withdrawal (Acute) Acute opioid withdrawal (Acute) 1. Acute opiate withdrawal/hypokalemia secondary to diarrhea from withdrawal -Last use was today -Continue with the opiate withdrawal protocol -Plan for [facility] follow-up as an outpatient -We will replace potassium and monitor both potassium and magnesium levels, he did receive IV fluids in the ED -On his previous admission he did need Librium for added symptom management, if necessary can repeat during this admission though he does deny alcohol use DVT: Ambulation Inpatient E&M: 82153 Init Hosp L2
[2020-11-16 16:29] VITALS: BP 109/68; PULSE 65; RESP 18; TEMP 37.4; O2SAT 98
--- NOTE | 2020-11-16 16:41 | CM.ED ---
SOCIAL WORK Referral Source Dr. Eckert Reason for Consult: Detox from opiates Met with patient in room. Patient requesting detox from fentanyl. Patient has been through [facility] in the past few months. Patient states last use of fentanyl was yesterday. Call to [facility] to update on patient's admission. [facility] intake to be in tomorrow to complete assessment. Plan: Admit to [facility] Regan Segundo, PLATING DEPARTMENT HELPER, HUMAN RESOURCES RECEPTIONIST
[2020-11-16 17:11] VITALS: BMI 18.4; BMI 18.5
[2020-11-16 17:30] VITALS: BP 102/57; PULSE 65; RESP 18; TEMP 36.9; O2SAT 98
[2020-11-16] MEDS: Potassium Chloride Oral Tablet 20 MEQ 60 MEQ PO (17:56)
[2020-11-16] MEDS: 0.9% Normal Saline 1,000 ML 125 ML IV (17:57)
[2020-11-16] MEDS: Gabapentin 300 MG Capsule PO (17:57)
[2020-11-16] MEDS: Methocarbamol 750 MG Tablet 1500 MG PO (17:57)
[2020-11-16] MEDS: cloNIDine HCl 0.1 MG Tablet PO (17:57)
[2020-11-16] MEDS: 0.9% Saline Lock 10 ML Syringe IV (17:58)
[2020-11-16] MEDS: Buprenorphine HCl 2 MG TAB.SUBL SL (18:08)
[2020-11-16 22:20] VITALS: BP 115/70; PULSE 57; RESP 16; TEMP 37.4; O2SAT 97
[2020-11-16] MEDS: hydrOXYzine PAM 25 MG Capsule 50 MG PO (22:28)
[2020-11-16] MEDS: traZODone 100 MG Tablet PO (22:28)
[2020-11-17] MEDS: Buprenorphine HCl 2 MG TAB.SUBL SL ×3 (02:05→18:14)
[2020-11-17 02:11] VITALS: BP 111/66; PULSE 67; RESP 16; TEMP 37.2; O2SAT 95
[2020-11-17 05:55] VITALS: BP 108/64; PULSE 55; RESP 16; TEMP 37.3; O2SAT 96
[2020-11-17 05:59] LABS: Absolute Lymphocyte Count 1.57 X10^3/uL (0.83-4.51); Basophil# 0.02 X10^3/uL; Basophil% 0.2 % (0-1); Hematocrit 42.2 % (40-54); Hemoglobin 14.1 g/dL (13.0-16.5); Lymphocyte # 1.57 X10^3/ul (4.0); Lymphocyte % 13.3 % (19-41); Mean Corp Hgb Conc 33.4 g/dL (32-36); Mean Corpuscular Hgb 29.2 pg (27.0-32.0); Mean Corpuscular Volume 87.4 fL (80-94); Mean Platelet Vol. 9.7 fl (6.2-12.0); Monocyte# 1.17 X10^3/uL; Monocyte% 9.9 % (0-10); NRBC Flagged by Analyzer 0 % (0-5); Neutrophil # 8.99 X10^3/uL (2.7-7.7); Neutrophil % 76.3 % (47-70); Platelet Count 249 K/mm3 (150-450); RBC Distribution Width CV 12.2 % (11.6-14.6); RBC Distribution Width SD 39.2 fl (35.1-43.9); Red Blood Count 4.83 M/mm3 (4.6-6.2); White Blood Count 11.8 K/mm3 (4.4-11.0)
[2020-11-17] MEDS: Methocarbamol 750 MG Tablet 1500 MG PO ×2 (06:04→15:55)
[2020-11-17] MEDS: hydrOXYzine PAM 25 MG Capsule 50 MG PO ×2 (06:04→15:55)
[2020-11-17 06:31] LABS: Anion Gap 5 (5-15); BUN 17 mg/dL (7-18); BUN/Creat Ratio 23.8 RATIO (10-20); Calcium,Total 8.3 mg/dL (8.5-10.1); Chloride 109 mmol/L (98-107); Creatinine, Serum 0.72 mg/dL (0.70-1.30); EST Glomerular Filtration Rate 137 mL/min (>60); Est Glom Filt Rate - Afr Amer 166 mL/min (>60); Estimated Creatinine Clearance 134.75 ml/min; Glucose 121 mg/dL (74-106); Potassium 3.8 mmol/L (3.5-5.1); Sodium Level 140 mmol/L (136-145)
[2020-11-17 10:05] VITALS: BP 120/70; PULSE 55; RESP 16; TEMP 37; O2SAT 97
[2020-11-17] MEDS: Gabapentin 300 MG Capsule PO (10:13)
[2020-11-17] MEDS: Sertraline 50 MG Tablet PO (10:13)
--- NOTE | 2020-11-17 10:18 | PN_ITS ---
Patient Problems: Active and Suspected Problems (Last Updated 10/07/20 @ 20:[address] Jorge Valera MD) Opiate withdrawal (Acute) Subjective: Doing well, no issues overnight. Diarrhea is resolving and his kidney function also has improved and his leukocytosis has resolved Vitals/I&O's: Vital Signs Temp Pulse Resp BP Pulse Ox 98.6 F 55 L 16 120/70 97 11/17/20 10:05 11/17/20 10:05 11/17/20 10:05 11/17/20 10:05 11/17/20 10:05 Oxygen Delivery Method Room Air Weight: 140 lb Body Mass Index (BMI) 18.4 Intake and Output for Last 24 Hours 11/15/20 11/16/20 11/17/20 23:59 23:59 23:59 Intake Total 999 / 1370 1769 Balance 999 / 1369 General: Alert, Oriented x3, Cooperative, No apparent distress HEENT: Atraumatic, PERRLA, EOMI, Normocephalic Oral: Moist Mucosa Neck: Supple, No JVD Lungs: Clear to auscultation, Normal air movement, No rhonchi, No wheeze, No rales Cardiovascular: Regular rate, Regular Rhythm, Normal S1, Normal S2, No murmurs Abdomen: Soft, Non Tender, Non-Distended, No Hepato-splenomegaly Extremities: No edema, Capillary Refill Less than 3 Seconds Skin: No rashes, No breakdown Neurological: Neuro grossly intact, Sensory exam intact to light touch and pain Psych/Mental Status: Normal affect, appropriate Laboratory Results 11/16/20 15:10: WBC 15.3 H, RBC 6.05, Hgb 17.8 H, Hct 50.3, MCV 83.1, MCH 29.4, MCHC 35.4, RDW Std Deviation 36.6, RDW Coeff of Floyd 12.0, Plt Count 335, MPV 9.5, Immature Gran % (Auto) 0.500, Neut % (Auto) 90.4 H, Lymph % (Auto) 4.7 L, [place] % (Auto) 4.3, Eos % (Auto) 0.0, Baso % (Auto) 0.1, Absolute Neuts (auto) 13.9 H, Absolute Lymphs (auto) 0.72 L, Nucleated RBC % 0 11/16/20 15:10: Sodium 139, Potassium 2.8 L, Chloride 102, Carbon Dioxide 30.0, Anion Gap 7, BUN 21 H, Creatinine 0.99, Estim Creat Clear Calc 98.00, Est GFR (MDRD) Af Amer 114, Est GFR (MDRD) Non-Af 95, BUN/Creatinine Ratio 21.3 H, Glucose 126 H, Calcium 10.0, Total Bilirubin 0.90, AST 9 L, ALT 21, Alkaline Phosphatase 63, Total Protein 8.9 H, Albumin 5.1 H, Globulin 3.8, Albumin/Globulin Ratio 1.3 11/16/20 15:10: Ethyl Alcohol < 3.0 11/16/20 15:10: Magnesium 2.0 11/16/20 15:49: Urine Opiates Screen NEGATIVE, Urine Methadone Screen NEGATIVE, Ur Barbiturates Screen NEGATIVE, Ur Phencyclidine Scrn NEGATIVE, Ur Amphetamines Screen NEGATIVE, U Methamphetamin-MDMA NEGATIVE, U Benzodiazepines Scrn NEGATIVE, Urine Cocaine Screen NEGATIVE, U Cannabinoids Screen NEGATIVE, Ur Drug Screen Comment 11/17/20 05:46: WBC 11.8 H, RBC 4.83, Hgb 14.1, Hct 42.2, MCV 87.4 D, MCH 29.2, MCHC 33.4 D, RDW Std Deviation 39.2, RDW Coeff of Floyd 12.2, Plt Count 249, MPV 9.7, Immature Gran % (Auto) 0.300, Neut % (Auto) 76.3 H, Lymph % (Auto) 13.3 L, [place] % (Auto) 9.9, Eos % (Auto) 0.0, Baso % (Auto) 0.2, Absolute Neuts (auto) 9.0 H, Absolute Lymphs (auto) 1.57, Nucleated RBC % 0 11/17/20 05:46: Sodium 140, Potassium 3.8, Chloride 109 H, Carbon Dioxide 26.0, Anion Gap 5, BUN 17, Creatinine 0.72, Estim Creat Clear Calc 134.75, Est GFR (MDRD) Af Amer 166, Est GFR (MDRD) Non-Af 137, BUN/Creatinine Ratio 23.8 H, Glucose 121 H, Calcium 8.3 L Current Medications Buprenorphine HCl (Buprenorphine Hcl 2 Mg Tab.Subl) 4 mg SL Q8H MARIANA; Taper Stop: 11/19/20 17:59 Last Admin: 11/17/20 10:14 Dose: 4 mg Documented by: Clonidine (Clonidine Hcl 0.1 Mg Tablet) 0.1 mg PO Q8H PRN PRN PRN Reason: RESTLESSNESS Last Admin: 11/16/20 17:57 Dose: 0.1 mg Documented by: Dicyclomine HCl (Dicyclomine 10 Mg Capsule) 20 mg PO Q6H PRN PRN PRN Reason: Abdominal Discomfort Last Admin: 11/16/20 17:57 Dose: 20 mg Documented by: Gabapentin (Gabapentin 300 Mg Capsule) 300 mg PO Q8H PRN PRN PRN Reason: moderate to severe anxiety Last Admin: 11/17/20 10:13 Dose: 300 mg Documented by: Hydroxyzine Pamoate (Hydroxyzine Martha 25 Mg Capsule) 50 mg PO Q6H PRN PRN PRN Reason: mild anxiety Last Admin: 11/17/20 06:04 Dose: 50 mg Documented by: Loperamide HCl (Loperamide 2 Mg Capsule) 2 mg PO Q4H PRN PRN PRN Reason: LOOSE STOOLS Methocarbamol (Methocarbamol 750 Mg Tablet) 1,500 mg PO Q6H PRN PRN PRN Reason: MUSCLE SPASM Last Admin: 11/17/20 06:04 Dose: 1,500 mg Documented by: Ondansetron HCl (Ondansetron 8 Mg Tablet) 8 mg PO Q8H PRN PRN PRN Reason: NAUSEA Sertraline HCl (Sertraline 50 Mg Tablet) 50 mg PO DAILY MARIANA Last Admin: 11/17/20 10:13 Dose: 50 mg Documented by: Sodium Chloride (0.9% Saline Lock 10 Ml Syringe) 10 - 40 ml IV UD PRN PRN Reason: SALINE FLUSH Last Admin: 11/16/20 17:58 Dose: 10 ml Documented by: Trazodone HCl (Trazodone 100 Mg Tablet) 100 mg PO QHS PRN PRN PRN Reason: INSOMNIA Last Admin: 11/16/20 22:28 Dose: 100 mg Documented by: STROKE Vital Signs/Narrative: Vital Signs Temp Pulse Resp BP Pulse Ox 11/17/20 10:05 98.6 F 55 L 16 120/70 97 Medical Necessity - Tobacco Use Smoking Status: Current every day smoker Tobacco Use: Cigarettes Assessment/Plan All Active Problems (Last Updated 10/07/20 @ 20:[address] Jorge Valera MD) Opiate withdrawal (Acute) Acute opioid withdrawal (Acute) 1. Acute opiate withdrawal/hypokalemia secondary to diarrhea from withdrawal -Last use was on day of admission -Continue with the opiate withdrawal protocol -Plan for 180 follow-up as an outpatient -Potassium is normal -Diarrhea has resolved DVT: Ambulation Inpatient E&M: 63222 Subs Hosp L2
--- NOTE | 2020-11-17 10:52 | ADDICTION ---
This continuity writer met with PT to complete ASAM, MSE, DUDIT assessments and to plan for d/c. All assessments completed, faxed to [facility] and placed in PT's chart. PT plans to f/u with [facility] upon d/c for outpatient counseling. PT reported I'll call and make appt once I know my work schedule. Refused current appt multiple times. PT amiable and cooperative, just does not want appointment at this time.
--- NOTE | 2020-11-17 15:19 | CHAPLAIN ---
Type of Pastoral Visit _x__ Initial Visit ___ Follow-up Visit ___ On-call Visit ___ General Patient Visit ___ Spiritual Assessment ___ Family Conference ___ Bereavement ___ Rapid Response ___ Code Blue ___ Other (describe below) Pastoral Care Referral From _x__ Patient ___ Family ___ Nurse ___ Physician ___ Insurance Claims Processor ___ Trim Mechanic ___ Other (describe below) Sacrament/Intervention _x__ Active listening ___ Anointing ___ Pentecostal _x__ Bereavement ___ Communion ___ Chanelle exploration ___ ___ Life review _x__ Prayer ___ Reconciliation ___ Sacrament of Sick _x__ Supportive presence ___ Wedding ___ Other (describe below) Pastoral Comments patient has been seen before by this 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
[2020-11-17 15:48] VITALS: BP 115/70; PULSE 55; RESP 16; TEMP 37.1; O2SAT 96
[2020-11-17] MEDS: Ondansetron 8 MG Tablet PO (15:55)
[2020-11-17] MEDS: cloNIDine HCl 0.1 MG Tablet PO (15:55)
[2020-11-17 20:30] VITALS: BP 91/51; PULSE 66; RESP 16; TEMP 36.7; O2SAT 97
[2020-11-17] MEDS: Dicyclomine 10 MG Capsule 20 MG PO (20:40)
[2020-11-17] MEDS: traZODone 100 MG Tablet PO (21:27)
[2020-11-18 02:16] VITALS: BP 93/55; PULSE 58; RESP 16; TEMP 36.7; O2SAT 97
[2020-11-18] MEDS: Buprenorphine HCl 2 MG TAB.SUBL SL ×3 (02:20→17:56)
[2020-11-18] MEDS: Gabapentin 300 MG Capsule PO ×2 (02:22→15:18)
[2020-11-18 02:27] VITALS: PULSE 58
[2020-11-18 09:30] VITALS: BP 102/49; PULSE 79; RESP 18; TEMP 36.7; O2SAT 100
[2020-11-18] MEDS: hydrOXYzine PAM 25 MG Capsule 50 MG PO ×2 (09:41→20:33)
[2020-11-18] MEDS: Sertraline 50 MG Tablet PO (09:41)
[2020-11-18] MEDS: cloNIDine HCl 0.1 MG Tablet PO (09:41)
[2020-11-18] MEDS: Methocarbamol 750 MG Tablet 1500 MG PO ×2 (09:41→20:33)
--- NOTE | 2020-11-18 10:54 | PCM.PN.HOSP ---
Patient Problems: Active and Suspected Problems (Last Updated 10/07/20 @ 20:[address] Jorge Valera MD) Opiate withdrawal (Acute) Subjective: No issues overnight, resting comfortably. Vitals/I&O's: Vital Signs Temp Pulse Resp BP Pulse Ox 98.0 F 79 18 102/49 L 100 11/18/20 09:30 11/18/20 09:30 11/18/20 09:30 11/18/20 09:30 11/18/20 09:30 Oxygen Delivery Method Room Air Weight: 139 lb 15.896 oz Body Mass Index (BMI) 18.4 Intake and Output for Last 24 Hours 11/16/20 11/17/20 11/18/20 23:59 23:59 23:59 Intake Total 1000 / 1370 1770 / 1770 250 / 250 Balance 1000 / 1370 1770 / 1770 250 / 250 General: Alert, Oriented x3, Cooperative, No apparent distress HEENT: Atraumatic, PERRLA, EOMI, Normocephalic Oral: Moist Mucosa Neck: Supple, No JVD Lungs: Clear to auscultation, Normal air movement, No rhonchi, No wheeze, No rales Cardiovascular: Regular rate, Regular Rhythm, Normal S1, Normal S2, No murmurs Abdomen: Soft, Non Tender, Non-Distended, No Hepato-splenomegaly Extremities: No edema, Capillary Refill Less than 3 Seconds Skin: No rashes, No breakdown Neurological: Neuro grossly intact, Sensory exam intact to light touch and pain Psych/Mental Status: Normal affect, appropriate Current Medications Buprenorphine HCl (Buprenorphine Hcl 2 Mg Tab.Subl) 2 mg SL Q8H MARIANA; Taper Stop: 11/19/20 17:59 Last Admin: 11/18/20 09:41 Dose: 2 mg Documented by: Clonidine (Clonidine Hcl 0.1 Mg Tablet) 0.1 mg PO Q8H PRN PRN PRN Reason: RESTLESSNESS Last Admin: 11/18/20 09:41 Dose: 0.1 mg Documented by: Dicyclomine HCl (Dicyclomine 10 Mg Capsule) 20 mg PO Q6H PRN PRN PRN Reason: Abdominal Discomfort Last Admin: 11/17/20 20:40 Dose: 20 mg Documented by: Gabapentin (Gabapentin 300 Mg Capsule) 300 mg PO Q8H PRN PRN PRN Reason: moderate to severe anxiety Last Admin: 11/18/20 02:22 Dose: 300 mg Documented by: Hydroxyzine Pamoate (Hydroxyzine Martha 25 Mg Capsule) 50 mg PO Q6H PRN PRN PRN Reason: mild anxiety Last Admin: 11/18/20 09:41 Dose: 50 mg Documented by: Loperamide HCl (Loperamide 2 Mg Capsule) 2 mg PO Q4H PRN PRN PRN Reason: LOOSE STOOLS Methocarbamol (Methocarbamol 750 Mg Tablet) 1,500 mg PO Q6H PRN PRN PRN Reason: MUSCLE SPASM Last Admin: 11/18/20 09:41 Dose: 1,500 mg Documented by: Ondansetron HCl (Ondansetron 8 Mg Tablet) 8 mg PO Q8H PRN PRN PRN Reason: NAUSEA Last Admin: 11/17/20 15:55 Dose: 8 mg Documented by: Sertraline HCl (Sertraline 50 Mg Tablet) 50 mg PO DAILY MARIANA Last Admin: 11/18/20 09:41 Dose: 50 mg Documented by: Sodium Chloride (0.9% Saline Lock 10 Ml Syringe) 10 - 40 ml IV UD PRN PRN Reason: SALINE FLUSH Last Admin: 11/16/20 17:58 Dose: 10 ml Documented by: Trazodone HCl (Trazodone 100 Mg Tablet) 100 mg PO QHS PRN PRN PRN Reason: INSOMNIA Last Admin: 11/17/20 21:27 Dose: 100 mg Documented by: STROKE Vital Signs/Narrative: Vital Signs Temp Pulse Resp BP Pulse Ox 11/18/20 09:30 98.0 F 79 18 102/49 L 100 Medical Necessity - Tobacco Use Smoking Status: Current every day smoker Tobacco Use: Cigarettes Assessment/Plan All Active Problems (Last Updated 10/07/20 @ 20:[address] Jorge Valera MD) Opiate withdrawal (Acute) Acute opioid withdrawal (Acute) 1. Acute opiate withdrawal/hypokalemia secondary to diarrhea from withdrawal -Last use was on day of admission -Continue with the opiate withdrawal protocol -Plan for 180 follow-up as an outpatient -Potassium is normal -Diarrhea has resolved DVT: Ambulation Inpatient E&M: 83512 Subs Hosp L2
[2020-11-18 15:13] VITALS: BP 85/50; PULSE 66; RESP 16; TEMP 36.9; O2SAT 99
[2020-11-18] MEDS: Dicyclomine 10 MG Capsule 20 MG PO (15:18)
--- NOTE | 2020-11-18 15:59 | CHAPLAIN ---
Type of Pastoral Visit ___ Initial Visit _x__ Follow-up Visit ___ On-call Visit ___ General Patient Visit ___ Spiritual Assessment ___ Family Conference ___ Bereavement ___ Rapid Response ___ Code Blue ___ Other (describe below) Pastoral Care Referral From _x__ Patient ___ Family ___ Nurse ___ Physician ___ Court Collections Officer ___ Weed Controller ___ Other (describe below) Sacrament/Intervention _x__ Active listening ___ Anointing ___ Congregation ___ Bereavement ___ Communion ___ Chanelle exploration ___ ___ Life review ___ Prayer ___ Reconciliation ___ Sacrament of Sick ___ Supportive presence ___ Wedding ___ Other (describe below) Pastoral Comments brief follow up to check on patient; pt is watching TV, talks openly about his plan after discharge and states that he is doing well;
[2020-11-18 20:27] VITALS: BP 93/55; PULSE 57; RESP 16; TEMP 36.8; O2SAT 97
[2020-11-18 20:38] VITALS: PULSE 57
[2020-11-18] MEDS: traZODone 100 MG Tablet PO (22:00)
[2020-11-19 02:28] VITALS: BP 95/60; PULSE 56; RESP 16; TEMP 36.4; O2SAT 99
[2020-11-19 02:34] VITALS: PULSE 56
[2020-11-19] MEDS: Buprenorphine HCl 2 MG TAB.SUBL SL (05:27)
[2020-11-19] MEDS: Methocarbamol 750 MG Tablet 1500 MG PO (07:16)
[2020-11-19 07:47] VITALS: BP 98/58; PULSE 56; PULSE 60; RESP 16; TEMP 36.7; O2SAT 99
[2020-11-19] MEDS: hydrOXYzine PAM 25 MG Capsule 50 MG PO (07:58)
[2020-11-19] MEDS: Sertraline 50 MG Tablet PO (07:58)
--- NOTE | 2020-11-19 08:38 | DCINST_ITS ---
- Discharge Diagnoses Current Active Problems: Current Active and Chronic Problems (Last Updated 10/07/20 @ 20:[address] Jorge Valera MD) Opiate withdrawal (Acute) Opioid dependence (Chronic) You will use the following diet at home:: Regular Your food should be the consistency of: Regular Your liquids should be the consistency of: Regular/Thin Discharge Activity: Return to Normal Activity Call your doctor if you observe: Fever of 101 or Higher, Shortness of breath, Dizziness, Fainting spells, Swelling in the ankles, Chest pain, Increased palpitations (irregular heartbeat) Allergies/Adverse Reactions: Allergies No Known Allergies Allergy (Verified 11/16/20 14:12) Medications to take at Discharge NK 04/18/20 Primary Care Physician: Care Physician,No Primary [Primary Care Provider] - Test Results: Test results from this visit will be discussed in further detail at your follow- up appointment, if applicable. Please Follow Up With: 180 When: As scheduled
--- NOTE | 2020-11-19 11:24 | DS.PCM_ITS ---
Discharge Date and Diagnosis - Problem List Patient Problems: Active and Suspected Problems (Last Updated 10/07/20 @ 20:[address] Jorge Valera MD) Opiate withdrawal (Acute) Date of Admission: 11/16/20 Date of Discharge: 11/19/20 - Primary Discharge Diagnosis Acute Problems: Active Problems (Last Updated 10/07/20 @ 20:[address] Jorge Valera MD) Opiate withdrawal (Acute) - Secondary Discharge Diagnosis Chronic Problems: Chronic Problems (Last Updated 10/07/20 @ 20:[address] Jorge Valera MD) Opioid dependence (Chronic) Hospital Course and Treatment Operations: None Procedures: None Summary of Care Provided: Per HPI: The patient is a 30 year old M with a PMH as below presents to the hospital with colicky abdominal pain and generalized aches and pains secondary to trying to self detox. He has been snorting fentanyl for about the last year has been using half a gram a day, he recently relapsed because his mother of cancer on October 25. He stopped using over the last couple of days to try to get his drug use under control and developed significant diarrhea as well as just not feeling well. In the ER vital signs are unremarkable, lab work demonstrated a leukocytosis to 15 with a normal renal function as well as a potassium of 2.8. Hospital Course: 1. Acute opiate withdrawal/hypokalemia secondary to diarrhea from withdrawal- 30-year-old male presents to the hospital after attempting to do self detox since he has been snorting fentanyl for about a year now. He uses about half a gram a day. He underwent the opiate withdrawal protocol and met with 180. He will follow up with him as an outpatient. His diarrhea resolved with treatment for his withdrawal symptoms and his potassium normalized with supplementation. He was given 2 L of fluid which also significantly helped. I discussed with him the plan for discharge today and he expressed understanding of the risk and benefits of going home and wants to go home today. Patient Problems: Active and Suspected Problems (Last Updated 10/07/20 @ 20:[address] Jorge Valera MD) Opiate withdrawal (Acute) - Physical Exam Vitals/I&O's: Vital Signs Temp Pulse Resp BP Pulse Ox 98.1 F 60 16 98/58 L 99 11/19/20 07:47 11/19/20 07:47 11/19/20 07:47 11/19/20 07:47 11/19/20 07:47 Oxygen Delivery Method Room Air Weight: 139 lb 15.896 oz Body Mass Index (BMI) 18.4 Intake and Output for Last 24 Hours 11/17/20 11/18/20 11/19/20 23:59 23:59 23:59 Intake Total 1770 / 1770 250 / 250 Balance 1770 / 1770 250 / 250 General: Alert, Oriented x3, Cooperative, No apparent distress HEENT: Atraumatic, PERRLA, EOMI, Normocephalic Oral: Moist Mucosa Neck: Supple, No JVD Lungs: Clear to auscultation, Normal air movement, No rhonchi, No wheeze, No rales Cardiovascular: Regular rate, Regular Rhythm, Normal S1, Normal S2, No murmurs Abdomen: Soft, Non Tender, Non-Distended, No Hepato-splenomegaly Extremities: No edema, Capillary Refill Less than 3 Seconds Skin: No rashes, No breakdown Neurological: Neuro grossly intact, Sensory exam intact to light touch and pain Psych/Mental Status: Normal affect, appropriate Discharge Activity: Return to Normal Activity Call your doctor if you observe: Fever of 101 or Higher, Shortness of breath, Dizziness, Fainting spells, Swelling in the ankles, Chest pain, Increased palpitations (irregular heartbeat) Home Medications: Medications to take at Discharge NK 04/18/20 Primary Care Physician: Care Physician,No Primary [Primary Care Provider] - Please Follow Up With: 180 When: As scheduled Disposition: Home Minutes spent on discharge:: 35 Patient Condition:: Stable Medical Necessity - Tobacco Use Smoking Status: Current every day smoker Tobacco Use: Cigarettes Meaningful Use Info Meaningful Use Diagnoses (Choose all that apply): None applicable Inpatient E&M: 65192 Disch Hosp
== END 2020-11-19 10:33 | disposition home or self-care (01) | DRG 773 ==
LOC: ED 16:09 → MS3 16:27
PROVIDERS: Admitting Provider Family Medicine; Emergency Provider Emergency Medicine; Visit Provider Family Medicine
DX: F11.23 Opioid dependence with withdrawal (principal); E87.6 Hypokalemia; F17.210 Nicotine dependence, cigarettes, uncomplicated
CPT/HCPCS: 80048; 80053; 80307; 82077; 83735; 85025; 99283; 99406; J7030; A4216; J2405

== ENCOUNTER 2020-12-10 13:53 | Inpatient (IN) | payer MEDICAID, SELFPAY ==
[2020-11-16 17:11] VITALS: BMI 18.4
[2020-12-10 13:53] VITALS: BP 148/71; PULSE 82; RESP 16; TEMP 36.2; O2SAT 98; BMI 18.8
--- NOTE | 2020-12-10 14:23 | ED.VIS.GEN ---
History of Present Illness Chief Complaint: Substance Abuse Informant: Patient Narrative: Patient is a 30-year-old male with history of opioid dependency and abuse presenting with withdrawal symptoms and request for detox. Patient states he was just discharged from inpatient detox about a month ago. He states he is discharged on Zoloft and that made him feel very weird. He started making feel very anxious and because of that he started using 2 days later. He states he snorts fentanyl and sometimes heroin. This morning he used a small amount of fentanyl and also took Percocet 5 mg. He is starting to have withdrawal symptoms including hypersalivation, runny nose, sneezing and body aches. Patient is currently in with his grandparents. He Nuys any other medical history. Denies any other drug use, tobacco use or alcohol use. Past Medical History - Allergies and Home Meds Allergies/Adverse Reactions: Allergies No Known Allergies Allergy (Verified 12/10/20 13:55) Primary Care Physician: Care Physician,No Primary [Primary Care Provider] - Past Medical History: - - Opioid abuse, anxiety Surgical History: no surgical history Lives: With Family Smoking Status: Never smoker - Family History Maternal Family History: Reports: Cancer, - - His mother is a recovery alcoholic. Paternal Family History: Reports: Cancer - His father had testicular cancer. Review of Systems General: Reports: Malaise. Denies: Chills, Fever, Sweats Eyes: Denies: Visual changes - bilaterally, Diplopia ENT: Reports: Rhinorrhea. Denies: Sore throat Cardiovascular: Denies: Chest pain, Palpitations Respiratory: Denies: Dyspnea, Cough, Dyspnea on exertion Gastrointestinal: Reports: Nausea. Denies: Abdominal pain, Vomiting, Diarrhea, Melena, Hematochezia Genitourinary: Denies: Dysuria, Hematuria, Frequency Musculoskeletal: Denies: Back pain, Extremity Pain Skin: Denies: Rash, Wounds Neurological: Denies: Headache, Weakness, Numbness Psych: Denies: Depression, Anxiety, Suicidal thoughts, Suicidal ideations Physical Exam Vital Signs/Narrative: Vital Signs Temp Pulse Resp BP Pulse Ox 12/10/20 13:53 97.1 F L 82 16 148/71 H 98 Inital Vital Signs reviewed: Yes General: Well nourished, Well developed, No Acute Distress Head: Normocephalic, Atraumatic Eyes: Perrl, EOMI ENT: Moist mucous membranes, No rhinorrhea Neck: Supple, Nontender, No JVD Cardiovascular: Regular rate, Regular rhythm, No murmurs Respiratory: No distress, CTA bilaterally, Chest nontender Abdomen: Soft, Nontender, Nondistended, Normal bowel sounds Back: Nontender, Normal Inspection Extremities: Nontender, No edema Skin: Normal color, No rash Neurological: Alert, Oriented x3, Cranial nerves II-XII grossly intact, Normal Strength, Normal Sensation Psychological: Normal affect, Normal Mood. Negative for: Depressed, Tearful Diagnostic/Tx/Re-eval - Medical Decision Making Patient requests opioid detox. Will discuss case with hospitalist for inpatient admission. Patient is well-appearing in the ER. Is given Zofran for mild nausea. ED Disposition - Plan for ED Patient: Disposition: Acute Care Hospital [facility] Diagnosis: Acute opioid withdrawal Referrals: Care Physician,No Primary [Primary Care Provider] -
--- NOTE | 2020-12-10 14:51 | HP.PCM_ITS ---
History of Present Illness Date of Admission: 12/10/20 Chief Complaint: acute opiate withdrawal The patient is a 30 year old M with a PMH as outlined who was admitted via the ED for acute opioid withdrawal. He was here about a month ago for opioid detox, and was following at [facility]. He says he was prescribed zoloft whilst he was in the hospital during his last admission for detox ~ 1 month ago, and it made him feel weird, so he made him start using fentanyl again. His last use of fentanyl via snorting was a few hours prior to admission, and he also took a percocet at that time. He feels like he is in withdrawal and complained of increased sweats and abdominal cramps. In the ED, vitals show temperature of 91.1 Fahrenheit with blood pressure of 148/71, pulse rate of 82 and respiratory of 16. Saturating 98% on room air. CBC and BMP were pending. He has been admitted to manage for acute opioid withdrawal. Urine tox was still pending. He is being admitted to be managed for acute opioid withdrawal. Past Medical History Past Medical History (Chronic Problems): Chronic Problems (Last Updated 10/07/20 @ 20:[address] Jorge Valera MD) Opioid dependence (Chronic) Medical History: Medical History (Last Updated 10/07/20 @ 20:[address] Jorge Valera MD) Denies previous medical history Allergies No Known Allergies Allergy (Verified 12/10/20 13:55) Home Medications: Ambulatory Orders Medication Instructions Recorded NK 04/18/20 Surgical History: no surgical history Lives: With Family Smoking Status: Never smoker - *Family History Maternal History Items: Cancer, - - His mother is a recovery alcoholic. Paternal History Items: Cancer - His father had testicular cancer. Review of Systems Constitutional: Denies: Chills, Fever, Weight Change HEENT: Denies: Head Aches, Sinus Congestion, Sinus Drainage Cardiovascular: Denies: Chest Pain, Palpitations Respiratory: Denies: Cough, Shortness of breath at rest, Sputum production Gastrointestinal: Denies: Abdominal Pain, Nausea, Vomiting Genitourinary: Denies: Dysuria Musculoskeletal: Denies: Joint Pain, Joint Tenderness Skin: Denies: Rash, Wounds Neurological: Denies: Numbness, Tingling, Focal weakness Psychiatric: Denies: Anxiety, Depression, Homicidal Ideations, Suicidal Ideations Hematologic/ Lymphatic: Denies: Easy Bruising, Easy Bleeding VTE Information - Inpt Only VTE Present on Admission: No VTE Pharm Prophylaxis ordered?: Yes - Physical Exam Vitals/I&O's: Vital Signs Temp Pulse Resp BP Pulse Ox 97.1 F L 82 16 148/71 H 98 12/10/20 13:53 12/10/20 13:53 12/10/20 13:53 12/10/20 13:53 12/10/20 13:53 Oxygen Delivery Method Room Air Weight: 143 lb 1.28 oz Body Mass Index (BMI) 18.8 General: Alert, Oriented x3, Cooperative HEENT: Atraumatic, PERRLA, EOMI, Normocephalic Oral: Dry Mucosa Neck: Supple, No JVD, Negative Carotid Bruits Lungs: Clear to auscultation, Normal air movement Cardiovascular: Regular rate, No murmurs Abdomen: Bowel Sounds Present, Soft, Non Tender Extremities: No edema, Capillary Refill Less than 3 Seconds Skin: No rashes, No breakdown Musculoskeletal: No Tenderness to Palpation of Joints or Extremities Neurological: Cranial nerves II-XII grossly intact, Neuro grossly intact, Motor Exam 5/5 strength throughout Psych/Mental Status: Normal Affect, Appropriate, Alert and oriented to time, p lace, person, mood and affect Assessment/Plan All Active Problems (Last Updated 10/07/20 @ 20:[address] Jorge Valera MD) Opiate withdrawal (Acute) Acute opioid withdrawal (Acute) 30y/o admitted with a complaint of acute opioid withdrawal #Acute opioid withdrawal * admit to med surg * start on acute opioid withdrawal with buprenorphine * monitor CINA score * * DVT prophylaxis: low risk, encourage to ambulate. Inpatient E&M: 20941 Init Hosp L3
[2020-12-10 14:55] LABS: Absolute Lymphocyte Count 0.98 X10^3/uL (0.83-4.51); Absolute Neutrophil Count 8.7 X10^3/uL (2.0-7.7); Basophil# 0.05 X10^3/uL; Basophil% 0.5 % (0-1); Eosinophil# 0.01 X10^3/uL; Eosinophils% 0.1 % (0-5); Hemoglobin 15.4 g/dL (13.0-16.5); Lymphocyte # 0.98 X10^3/ul (0.83-4.51); Lymphocyte % 9.6 % (19-41); Mean Corp Hgb Conc 33.5 g/dL (32-36); Mean Corpuscular Hgb 28.7 pg (27.0-32.0); Mean Corpuscular Volume 85.8 fL (80-94); Mean Platelet Vol. 9.5 fl (6.2-12.0); Monocyte# 0.41 X10^3/uL; NRBC Flagged by Analyzer 0 % (0-5); Neutrophil # 8.73 X10^3/uL (2.7-7.7); Neutrophil % 85.5 % (47-70); Platelet Count 289 K/mm3 (150-450); RBC Distribution Width CV 11.8 % (11.6-14.6); RBC Distribution Width SD 37.1 fl (35.1-43.9); Red Blood Count 5.36 M/mm3 (4.6-6.2); White Blood Count 10.2 K/mm3 (4.4-11.0)
[2020-12-10 15:09] LABS: ALB/GLOB Ratio 1.3 RATIO (0.9-2.4); AST(SGOT) 14 U/L (15-37); Alanine Aminotransfer ALT/SGPT 23 U/L (16-61); Albumin, Serum 4.3 g/dL (3.2-5.0); Alkaline Phosphatase 55 U/L (45-117); Anion Gap 7 (5-15); BUN 8 mg/dL (7-18); BUN/Creat Ratio 10.3 RATIO (10-20); Calcium,Total 9.7 mg/dL (8.5-10.1); Chloride 105 mmol/L (98-107); Creatinine, Serum 0.78 mg/dL (0.70-1.30); EST Glomerular Filtration Rate 125 mL/min (>60); Est Glom Filt Rate - Afr Amer 151 mL/min (>60); Estimated Creatinine Clearance 127.12 ml/min; Globulin 3.4 g/dL (2.2-4.2); Glucose 97 mg/dL (74-106); Potassium 3.5 mmol/L (3.5-5.1); Protein, Total 7.7 g/dL (6.4-8.2); Sodium Level 140 mmol/L (136-145)
[2020-12-10] MEDS: Ondansetron ODT 4 MG Tablet PO (15:09)
[2020-12-10 15:10] VITALS: BP 148/71; PULSE 82; RESP 16; TEMP 36.2; O2SAT 98
[2020-12-10 15:10] LABS: Amphetamine Urine VISTA NEGATIVE (<1000 ng/mL); Barbiturate Urine VISTA NEGATIVE (< 200 ng/mL); Benzodiazepine Urine VISTA NEGATIVE (< 200 ng/mL); Cocaine Urine VISTA NEGATIVE (< 300 ng/mL); Ecstacy Urine VISTA NEGATIVE (< 500 ng/mL); Methadone Urine VISTA NEGATIVE (< 300 ng/mL); PCP Urine VISTA NEGATIVE (< 25 ng/mL); THC Urine VISTA NEGATIVE (< 50 ng/mL); Vista UDS pH Range 7
[2020-12-10 15:32] VITALS: BP 117/76; PULSE 71; RESP 18; TEMP 36.8; O2SAT 99; BMI 18.5
--- NOTE | 2020-12-10 15:46 | CASEMGMT ---
Social Work Note Pt is RAMP pt, SW placed a call to [facility] and spoke with Juliane and provided referral. Clemencia Landis MANAGER OF APPLICATION DEVELOPMENT, CAMPUS ADMINISTRATOR
[2020-12-10] MEDS: cloNIDine HCl 0.1 MG Tablet PO (16:05)
[2020-12-10] MEDS: Methocarbamol 750 MG Tablet 1500 MG PO (16:05)
[2020-12-10] MEDS: Gabapentin 300 MG Capsule PO (16:05)
[2020-12-10] MEDS: hydrOXYzine PAM 25 MG Capsule 50 MG PO (16:05)
[2020-12-10 16:09] LABS: Alcohol, Blood (Medical)-Serum < 3.0 mg/dL
[2020-12-10] MEDS: Buprenorphine HCl 2 MG TAB.SUBL SL (16:40)
[2020-12-10 19:59] VITALS: BP 109/70; PULSE 73; RESP 16; TEMP 36.7; O2SAT 98
[2020-12-10] MEDS: Ondansetron 8 MG Tablet PO (20:02)
[2020-12-10] MEDS: Dicyclomine 10 MG Capsule 20 MG PO (20:02)
[2020-12-11 00:15] VITALS: BP 103/66; PULSE 58; RESP 16; TEMP 36.7; O2SAT 100
[2020-12-11] MEDS: Buprenorphine HCl 2 MG TAB.SUBL SL ×3 (00:15→16:49)
[2020-12-11] MEDS: traZODone 100 MG Tablet PO (00:15)
[2020-12-11] MEDS: hydrOXYzine PAM 25 MG Capsule 50 MG PO ×2 (00:15→13:46)
[2020-12-11] MEDS: Methocarbamol 750 MG Tablet 1500 MG PO ×3 (00:15→16:49)
[2020-12-11 05:11] VITALS: BP 104/69; PULSE 60; RESP 16; TEMP 36.6; O2SAT 98
--- NOTE | 2020-12-11 07:28 | PN_ITS ---
Reason for Visit: Acute opioid withdrawal Subjective: Patient is a 30-year-old gentleman with history of opiate dependence admitted w [facility] [place] acute opioid withdrawal Seen complains of abdominal cramps as well as significant nausea Objective: GENERAL: cooperative HEENT: Atraumatic; EYES; Anicteric, Normal Conjunctiva NECK; supple, normal thyroid, RESPIRATORY: Diminished to auscultation CARDIOVASCULAR: Regular S1 S2, GI: soft, normoactive bowel sounds, : No Renal angle tenderness; EXTREMITIES: No edema, no clubbing, MUSCULOSKELETAL: no muscle waisting NEURO: Awake; no lateralizing signs. SKIN: No Rash PSYCH; Flat affect Vitals/I&O's: Vital Signs Temp Pulse Resp BP Pulse Ox 97.8 F 60 16 104/69 98 12/11/20 05:11 12/11/20 05:11 12/11/20 05:11 12/11/20 05:11 12/11/20 05:11 Oxygen Delivery Method Room Air Weight: 63.6 kg Body Mass Index (BMI) 18.5 Intake and Output for Last 24 Hours 12/09/20 12/10/20 12/11/20 23:59 23:59 23:59 Intake Total 470 / 470 250 / 250 Balance 470 / 470 250 / 250 Laboratory Results 12/10/20 14:45: WBC 10.2, RBC 5.36, Hgb 15.4, Hct 46.0, MCV 85.8, MCH 28.7, MCHC 33.5, RDW Std Deviation 37.1, RDW Coeff of Floyd 11.8, Plt Count 289, MPV 9.5, Immature Gran % (Auto) 0.300, Neut % (Auto) 85.5 H, Lymph % (Auto) 9.6 L, Mineral % (Auto) 4.0, Eos % (Auto) 0.1, Baso % (Auto) 0.5, Absolute Neuts (auto) 8.7 H, Absolute Lymphs (auto) 0.98, Nucleated RBC % 0 12/10/20 14:45: Sodium 140, Potassium 3.5, Chloride 105, Carbon Dioxide 28.0, Anion Gap 7, BUN 8, Creatinine 0.78, Estim Creat Clear Calc 127.12, Est GFR (MDRD) Af Amer 151, Est GFR (MDRD) Non-Af 125, BUN/Creatinine Ratio 10.3, Glucose 97, Calcium 9.7, Total Bilirubin 0.40, AST 14 L, ALT 23, Alkaline Phosphatase 55, Total Protein 7.7, Albumin 4.3, Globulin 3.4, Albumin/Globulin Ratio 1.3 12/10/20 14:45: Ethyl Alcohol < 3.0 12/10/20 14:45: Urine Opiates Screen POSITIVE H, Urine Methadone Screen NEGATIVE, Ur Barbiturates Screen NEGATIVE, Ur Phencyclidine Scrn NEGATIVE, Ur Amphetamines Screen NEGATIVE, U Methamphetamin-MDMA NEGATIVE, U Benzodiazepines Scrn NEGATIVE, Urine Cocaine Screen NEGATIVE, U Cannabinoids Screen NEGATIVE, Ur Drug Screen Comment Current Medications Buprenorphine HCl (Buprenorphine Hcl 2 Mg Tab.Subl) 4 mg SL Q8H MARIANA; Taper Stop: 12/13/20 15:59 Last Admin: 12/11/20 00:15 Dose: 4 mg Documented by: Clonidine (Clonidine Hcl 0.1 Mg Tablet) 0.1 mg PO Q8H PRN PRN PRN Reason: RESTLESSNESS Last Admin: 12/10/20 16:05 Dose: 0.1 mg Documented by: Dicyclomine HCl (Dicyclomine 10 Mg Capsule) 20 mg PO Q6H PRN PRN PRN Reason: Abdominal Discomfort Last Admin: 12/10/20 20:02 Dose: 20 mg Documented by: Gabapentin (Gabapentin 300 Mg Capsule) 300 mg PO Q8H PRN PRN PRN Reason: moderate to severe anxiety Last Admin: 12/10/20 16:05 Dose: 300 mg Documented by: Hydroxyzine Pamoate (Hydroxyzine Martha 25 Mg Capsule) 50 mg PO Q6H PRN PRN PRN Reason: mild anxiety Last Admin: 12/11/20 00:15 Dose: 50 mg Documented by: Loperamide HCl (Loperamide 2 Mg Capsule) 2 mg PO Q4H PRN PRN PRN Reason: LOOSE STOOLS Methocarbamol (Methocarbamol 750 Mg Tablet) 1,500 mg PO Q6H PRN PRN PRN Reason: MUSCLE SPASM Last Admin: 12/11/20 00:15 Dose: 1,500 mg Documented by: Ondansetron HCl (Ondansetron 8 Mg Tablet) 8 mg PO Q8H PRN PRN PRN Reason: NAUSEA Last Admin: 12/10/20 20:02 Dose: 8 mg Documented by: Sodium Chloride (0.9% Saline Lock 10 Ml Syringe) 10 - 40 ml IV UD PRN PRN Reason: SALINE FLUSH Trazodone HCl (Trazodone 100 Mg Tablet) 100 mg PO QHS PRN PRN PRN Reason: INSOMNIA Last Admin: 12/11/20 00:15 Dose: 100 mg Documented by: STROKE Vital Signs/Narrative: Vital Signs Temp Pulse Resp BP Pulse Ox 12/11/20 05:11 97.8 F 60 16 104/69 98 Medical Necessity - Tobacco Use Smoking Status: Never smoker Assessment/Plan All Active Problems (Last Updated 10/07/20 @ 20:[address] Jorge Valera MD) Opiate withdrawal (Acute) Acute opioid withdrawal (Acute) Patient is a 30-year-old gentleman admitted with acute opiate withdrawal 1. Acute opiate withdrawal -admitted to regular nursing floor for medical stabilization using Subutex 2. Opioid dependence ?Counseled on cessation 3. DVT prophylaxis low risk did encourage ambulation Inpatient E&M: 78244 Subs Hosp L2
[2020-12-11 09:08] VITALS: BP 92/53; PULSE 77; RESP 14; TEMP 36.9; O2SAT 98
[2020-12-11 13:43] VITALS: BP 98/57; PULSE 66; RESP 18; TEMP 37.2; O2SAT 97
[2020-12-11 16:46] VITALS: BP 94/57; PULSE 65; RESP 16; TEMP 36.7; O2SAT 98
[2020-12-11] MEDS: Dicyclomine 10 MG Capsule 20 MG PO (16:49)
[2020-12-11 20:45] VITALS: BP 94/52; PULSE 88; RESP 16; TEMP 36.9; O2SAT 98
[2020-12-12] MEDS: traZODone 100 MG Tablet PO ×2 (00:11→22:34)
[2020-12-12] MEDS: Buprenorphine HCl 2 MG TAB.SUBL SL ×3 (00:12→16:11)
[2020-12-12 03:13] VITALS: BP 86/54; PULSE 87; RESP 16; TEMP 37; O2SAT 97
[2020-12-12 06:44] VITALS: BP 91/49; PULSE 62; RESP 16; TEMP 36.6; O2SAT 99
--- NOTE | 2020-12-12 07:57 | PCM.PN.HOSP ---
Reason for Visit: Acute opioid withdrawal Subjective: Seen abdominal pain and cramps less intense compared to previous day. Has tolerated the Subutex protocol well so far. Objective: GENERAL: cooperative HEENT: Atraumatic; EYES; Anicteric, Normal Conjunctiva NECK; supple, normal thyroid, RESPIRATORY: Diminished to auscultation CARDIOVASCULAR: Regular S1 S2, GI: soft, normoactive bowel sounds, : No Renal angle tenderness; EXTREMITIES: No edema, no clubbing, MUSCULOSKELETAL: no muscle waisting NEURO: Awake; no lateralizing signs. SKIN: No Rash PSYCH; Flat affect Vitals/I&O's: Vital Signs Temp Pulse Resp BP Pulse Ox 97.9 F 62 16 91/49 L 99 12/12/20 06:44 12/12/20 06:44 12/12/20 06:44 12/12/20 06:44 12/12/20 06:44 Oxygen Delivery Method Room Air Weight: 63.6 kg Body Mass Index (BMI) 18.5 Intake and Output for Last 24 Hours 12/10/20 12/11/20 12/12/20 23:59 23:59 23:59 Intake Total 470 / 470 690 / 690 Balance 470 / 470 690 / 690 Current Medications Buprenorphine HCl (Buprenorphine Hcl 2 Mg Tab.Subl) 2 mg SL Q8H MARIANA; Taper Stop: 12/13/20 15:59 Last Admin: 12/12/20 00:12 Dose: 2 mg Documented by: Clonidine (Clonidine Hcl 0.1 Mg Tablet) 0.1 mg PO Q8H PRN PRN PRN Reason: RESTLESSNESS Last Admin: 12/10/20 16:05 Dose: 0.1 mg Documented by: Dicyclomine HCl (Dicyclomine 10 Mg Capsule) 20 mg PO Q6H PRN PRN PRN Reason: Abdominal Discomfort Last Admin: 12/11/20 16:49 Dose: 20 mg Documented by: Gabapentin (Gabapentin 300 Mg Capsule) 300 mg PO Q8H PRN PRN PRN Reason: moderate to severe anxiety Last Admin: 12/10/20 16:05 Dose: 300 mg Documented by: Hydroxyzine Pamoate (Hydroxyzine Martha 25 Mg Capsule) 50 mg PO Q6H PRN PRN PRN Reason: mild anxiety Last Admin: 12/11/20 13:46 Dose: 50 mg Documented by: Loperamide HCl (Loperamide 2 Mg Capsule) 2 mg PO Q4H PRN PRN PRN Reason: LOOSE STOOLS Methocarbamol (Methocarbamol 750 Mg Tablet) 1,500 mg PO Q6H PRN PRN PRN Reason: MUSCLE SPASM Last Admin: 12/11/20 16:49 Dose: 1,500 mg Documented by: Ondansetron HCl (Ondansetron 8 Mg Tablet) 8 mg PO Q8H PRN PRN PRN Reason: NAUSEA Last Admin: 12/10/20 20:02 Dose: 8 mg Documented by: Sodium Chloride (0.9% Saline Lock 10 Ml Syringe) 10 - 40 ml IV UD PRN PRN Reason: SALINE FLUSH Trazodone HCl (Trazodone 100 Mg Tablet) 100 mg PO QHS PRN PRN PRN Reason: INSOMNIA Last Admin: 12/12/20 00:11 Dose: 100 mg Documented by: STROKE Vital Signs/Narrative: Vital Signs Temp Pulse Resp BP Pulse Ox 12/12/20 06:44 97.9 F 62 16 91/49 L 99 Medical Necessity - Tobacco Use Smoking Status: Never smoker Assessment/Plan All Active Problems (Last Updated 10/07/20 @ 20:[address] Jorge Valera MD) Opiate withdrawal (Acute) Acute opioid withdrawal (Acute) Patient is a 30-year-old gentleman admitted with acute opiate withdrawal 1. Acute opiate withdrawal -admitted to regular nursing floor for medical stabilization using Subutex -12/12/2020 Seen abdominal pain and cramps less intense compared to previous day. Has tolerated the Subutex protocol well so far. 2. Opioid dependence ?Counseled on cessation 3. DVT prophylaxis -low risk -did encourage ambulation Inpatient E&M: 58628 [facility] Hosp L2
[2020-12-12 08:54] VITALS: BP 109/59; PULSE 93; RESP 16; TEMP 36.7; O2SAT 100
[2020-12-12] MEDS: Methocarbamol 750 MG Tablet 1500 MG PO ×2 (08:58→17:50)
[2020-12-12] MEDS: Dicyclomine 10 MG Capsule 20 MG PO (08:59)
[2020-12-12 14:00] VITALS: BP 100/43; PULSE 94; RESP 16; TEMP 36.7; O2SAT 100
[2020-12-12] MEDS: Gabapentin 300 MG Capsule PO (14:08)
[2020-12-12 19:43] VITALS: BP 100/56; PULSE 71; RESP 16; TEMP 37.2; O2SAT 100
[2020-12-13 02:00] VITALS: BP 102/63; PULSE 58; RESP 16; TEMP 36.5; O2SAT 99
[2020-12-13] MEDS: Buprenorphine HCl 2 MG TAB.SUBL SL (03:54)
--- NOTE | 2020-12-13 07:46 | DCINST_ITS ---
- Discharge Diagnoses Current Active Problems: Acute opioid withdrawal Reason(s) for Visit for Discharge Instructions: Acute opioid withdrawal You will use the following diet at home:: Regular Your food should be the consistency of: Regular Your liquids should be the consistency of: Regular/Thin Discharge Activity: Return to Normal Activity Additional Instructions: You are strongly advised to continue to avoid use of opioids. You are also advised to stop smoking. Follow-up with your outpatient drug rehab program as scheduled. Allergies/Adverse Reactions: Allergies No Known Allergies Allergy (Verified 12/10/20 13:55) Medications to take at Discharge NK 04/18/20 Primary Care Physician: Care Physician,No Primary [Primary Care Provider] - Please follow up with your Primary Care Physician in: within 2-4 weeks of discharge Test Results: Test results from this visit will be discussed in further detail at your follow- up appointment, if applicable. Proposed Discharge Date: 12/13/20
--- NOTE | 2020-12-13 09:17 | DS.PCM_ITS ---
Discharge Date and Diagnosis Date of Admission: 12/10/20 Date of Discharge: 12/13/20 - Primary Discharge Diagnosis Acute Problems: Acute opioid withdrawal Nicotine dependence - Secondary Discharge Diagnosis Chronic Problems: Chronic Problems (Last Updated 10/07/20 @ 20:[address] Jorge Valera MD) Opioid dependence (Chronic) Hospital Course and Treatment Operations: None Procedures: None Summary of Care Provided: The patient is a 30 year old M with history of polysubstance use disorder who comes in for medical stabilization from acute opioid withdrawal. Patient admits to using fentanyl. He last used fentanyl few hours prior to admission. [facility] increased abdominal cramps and sweats and f eeling hot and cold. He was managed on the Subutex withdrawal protocol with improvement. He was followed up by the addiction medicine manager social media. He will follow up with 180 in the outpatient Subjective: On the day of discharge, patient was seen and examined. He complains of cramps in his legs. Otherwise no acute events overnight. Objective: Physical exam: General: Alert, Oriented x3, Cooperative, No apparent distress, Well developed HEENT: Atraumatic Oral: Moist Mucosa Neck: Supple Lungs: Clear to auscultation Cardiovascular: HS I+II, regular, no murmurs Abdomen: Bowel Sounds Present, Soft, Non Tender Extremities: No edema Skin: No rashes, No breakdown Neurological: Grossly intact Psych/Mental Status: Appropriate - Physical Exam Vitals/I&O's: Vital Signs Temp Pulse Resp BP Pulse Ox 97.7 F L 58 L 16 102/63 99 12/13/20 02:00 12/13/20 02:00 12/13/20 02:00 12/13/20 02:00 12/13/20 02:00 Oxygen Delivery Method Room Air Weight: 63.6 kg Body Mass Index (BMI) 18.5 Intake and Output for Last 24 Hours 12/11/20 12/12/20 12/13/20 23:59 23:59 23:59 Intake Total 690 / 690 820 / 820 Balance 690 / 690 820 / 820 Current Medications Buprenorphine HCl (Buprenorphine Hcl 2 Mg Tab.Subl) 2 mg SL Q12H MARIANA; Taper Stop: 12/13/20 15:59 Last Admin: 12/13/20 03:54 Dose: 2 mg Documented by: Clonidine (Clonidine Hcl 0.1 Mg Tablet) 0.1 mg PO Q8H PRN PRN PRN Reason: RESTLESSNESS Last Admin: 12/10/20 16:05 Dose: 0.1 mg Documented by: Dicyclomine HCl (Dicyclomine 10 Mg Capsule) 20 mg PO Q6H PRN PRN PRN Reason: Abdominal Discomfort Last Admin: 12/12/20 08:59 Dose: 20 mg Documented by: Gabapentin (Gabapentin 300 Mg Capsule) 300 mg PO Q8H PRN PRN PRN Reason: moderate to severe anxiety Last Admin: 12/12/20 14:08 Dose: 300 mg Documented by: Hydroxyzine Pamoate (Hydroxyzine Martha 25 Mg Capsule) 50 mg PO Q6H PRN PRN PRN Reason: mild anxiety Last Admin: 12/11/20 13:46 Dose: 50 mg Documented by: Loperamide HCl (Loperamide 2 Mg Capsule) 2 mg PO Q4H PRN PRN PRN Reason: LOOSE STOOLS Methocarbamol (Methocarbamol 750 Mg Tablet) 1,500 mg PO Q6H PRN PRN PRN Reason: MUSCLE SPASM Last Admin: 12/12/20 17:50 Dose: 1,500 mg Documented by: Ondansetron HCl (Ondansetron 8 Mg Tablet) 8 mg PO Q8H PRN PRN PRN Reason: NAUSEA Last Admin: 12/10/20 20:02 Dose: 8 mg Documented by: Sodium Chloride (0.9% Saline Lock 10 Ml Syringe) 10 - 40 ml IV UD PRN PRN Reason: SALINE FLUSH Trazodone HCl (Trazodone 100 Mg Tablet) 100 mg PO QHS PRN PRN PRN Reason: INSOMNIA Last Admin: 12/12/20 22:34 Dose: 100 mg Documented by: Discharge Diet: No Restrictions Discharge Activity: Return to Normal Activity Home Medications: Medications to take at Discharge NK 04/18/20 Primary Care Physician: Care Physician,No Primary [Primary Care Provider] - Please follow up with your Primary Care Physician in: within 2-4 weeks of discharge Disposition: Home Minutes spent on discharge:: 25 Patient Condition:: Stable Medical Necessity - Tobacco Use Smoking Status: Never smoker Tobacco Use: Non-smoker Meaningful Use Info Meaningful Use Diagnoses (Choose all that apply): None applicable Inpatient E&M: [id number] [facility] Hosp
[2020-12-13] MEDS: Methocarbamol 750 MG Tablet 1500 MG PO (09:24)
[2020-12-13] MEDS: Gabapentin 300 MG Capsule PO (09:24)
[2020-12-13 09:27] VITALS: BP 95/64; PULSE 95; RESP 16; TEMP 36.8; O2SAT 99
--- NOTE | 2020-12-13 11:15 | PHA.DC.MR ---
Pharmacy Service has performed discharge medication reconciliation for this patient. The patient's discharge medication list was reviewed for discrepancies and discrepancies were resolved. Home Medications NK 04/18/20
[2020-12-13] MEDS: hydrOXYzine PAM 25 MG Capsule 50 MG PO (15:13)
[2020-12-13 15:20] VITALS: BP 100/55; PULSE 83; RESP 16; TEMP 36.6; O2SAT 100
== END 2020-12-13 15:44 | disposition home or self-care (01) | DRG 773 ==
LOC: ED 14:54 → MS3 12-11 07:05
PROVIDERS: Admitting Provider Student in an Organized Health Care Education/Training Program; Emergency Provider Emergency Medicine; Visit Provider Internal Medicine
DX: F11.23 Opioid dependence with withdrawal (principal); F17.200 Nicotine dependence, unspecified, uncomplicated
CPT/HCPCS: 36415; 80053; 80307; 82077; 85025; 99283

== ENCOUNTER 2022-08-12 19:12 | Emergency (ER) | payer MEDICAID, SELFPAY ==
[2022-08-12 19:13] VITALS: BP 135/82; PULSE 102; RESP 18; TEMP 37.1; O2SAT 98; BMI 19.8
--- NOTE | 2022-08-12 19:51 | ED.VIS.DENTA ---
HPI History of Present Illness Chief Complaint: Dental Narrative Narrative: 32-year-old male presenting with right-sided dental pain. He states that this started on . He states he had some facial swelling which is actually improving. Not a fever or chills. No difficulty eating or drinking. He has no problem swallowing or breathing. He states he ate [employer] on the way to the emergency room. PFSH PFS Medical History Acute opioid withdrawal Denies previous medical history Home Medications amoxicillin 875 mg-potassium clavulanate 125 mg tablet 1 tab PO BID #20 tabs 08/12/22 [Rx Last Taken Unknown] Allergy/AdvReac Type Severity Reaction Status Date / Time No Known Allergies Allergy Verified 08/12/22 19:14 Social History Smoking Status: Never smoker ROS ROS ED Constitutional Constitutional ED: Denies chills or fever(s) Eyes Eyes: Denies blurry vision or change in vision ENT ENT ED: Denies rhinorrhea or sore throat Cardiovascular Cardiovascular: Denies chest pain or palpitations Respiratory/Chest Respiratory/Chest: Denies cough or dyspnea Gastrointestinal Gastrointestinal: Denies abdominal pain or constipation Genitourinary Genitourinary ED: Denies dysuria EXAM Physical Exam Const Vital Signs: 08/12/22 19:13 Temperature 98.7 F Temperature Source Temporal Pulse Rate 102 H Respiratory Rate 18 Blood Pressure 135/82 H Blood Pressure Mean 99 Pulse Ox 98 Oxygen Delivery Method Room Air Positive well nourished General Appearance ED: NAD HEENT HEENT Narrative: Dental caries throughout. Partially edentulous. No sublingual edema. Tongue is not swollen. No posterior oropharyngeal erythema or edema. No submandibular fullness. The upper right dental region is eroded. There is some gingival swelling here on the right. No junior fluctuance. Eyes PERRL Neck no lymphadenopathy Chest Wall inspection of chest normal and palpation of chest normal Resp normal respiratory effort and no retractions Cardio regular rate and regular rhythm GI normal to inspection, nondistended, normoactive bowel sounds Extremity normal to inspection Neuro oriented x3 and CN's II-XII intact bilaterally Sensorium / Orientation: alert Motor Exam: strength 5/5 throughout Psych mental status grossly normal Skin no rashes or lesions noted MDM MDM MDM Narrative Medical decision making narrative: Patient has multiple dental caries. We complains about on his right upper maxillary teeth there is an area of very severe dental caries. There is some associated gingival edema without fluctuance. Patient will be started on Augmentin for home. He has a follow-up with his dental professional he states in August. He was given a dental referral sheet should he need it. Tylenol and ibuprofen for pain. Return precautions discussed. Impression: 1. Dental caries 2. Dental infection Lab Data Attestation: I reviewed the patient's lab results. Discharge Plan Triage Chief Complaint: Dental ED Provider: Andrew Terrazas Dx/Rx/DC Orders Instructions: ED Dental Abscess Prescriptions: New amoxicillin-pot clavulanate 875-125 mg tablet 1 tab PO BID Qty: 20 0RF Primary Care Provider: Care Physician,No Primary Referrals: [facility] [Outside] - 3-5 Days Care Physician,No Primary [Primary Care Provider] - Disposition Disposition: Home, Self Care
[2022-08-12] MEDS: Amox/Clavulanate 875 MG Tablet PO (20:22)
[2022-08-12 20:23] VITALS: BP 128/78; PULSE 74; RESP 16; O2SAT 97
== END 2022-08-12 20:30 | disposition home or self-care (01) ==
PROVIDERS: Emergency Provider Student in an Organized Health Care Education/Training Program; Visit Provider Student in an Organized Health Care Education/Training Program
DX: K04.7 Periapical abscess without sinus (principal); K02.9 Dental caries, unspecified
CPT/HCPCS: 99283

== ENCOUNTER 2023-02-04 13:44 | Emergency (ER) | payer MEDICAID, SELFPAY ==
[2023-02-04 13:44] VITALS: BP 110/67; PULSE 67; RESP 16; TEMP 36.3; O2SAT 99; BMI 18.9
--- NOTE | 2023-02-04 13:54 | ED.VIS.DENTA ---
HPI History of Present Illness Chief Complaint: Dental Informant: patient Narrative Narrative: Dental pain left maxillary for a week or 2, feels like it is getting worse. Has poor dentition and has an appointment to see a dentist but cannot get in for about 3 weeks. Denies any swelling or foul taste in his mouth or drainage or bleeding that he knows of, he is here seeking an antibiotic to prevent it from getting worse or developing an abscess. Has a history of opioid issues and states I do not want anything for pain. PFSH PFSH Medical History Acute opioid withdrawal Denies previous medical history Home Medications amoxicillin 875 mg-potassium clavulanate 125 mg tablet 1 tab PO Q12H #20 tabs 08/13/22 [Rx Last Taken Unknown] amoxicillin 500 mg tablet 500 mg PO TID #30 tabs 02/04/23 [Rx Last Taken Unknown] Allergy/AdvReac Type Severity Reaction Status Date / Time No Known Allergies Allergy Verified 02/04/23 13:46 Social History Smoking Status: Never smoker ROS ROS ED Constitutional Constitutional ED: Denies chills or fever(s) Eyes Eyes: Denies change in vision or double vision ENT ENT ED: Reports dental pain; Denies sinus pain or throat swelling Cardiovascular Cardiovascular: Denies chest pain or palpitations Respiratory/Chest Respiratory/Chest: Denies cough or dyspnea Integumentary Denies abscess or rash Neurologic Neurologic: Denies headache(s), paresthesias or weakness EXAM Physical Exam Const Vital Signs: 02/04/23 13:44 Temperature 97.4 F L Temperature Source Temporal Pulse Rate 67 Respiratory Rate 16 Blood Pressure 110/67 Blood Pressure Mean 81 Pulse Ox 99 Oxygen Delivery Method Room Air Positive well nourished and well developed General Appearance ED: well developed and NAD HEENT HEENT Narrative: Well-appearing, symmetric face no swelling or abscess, no trismus. Extremely poor dentition with multifocal decay especially in the left maxillary dentition, gingiva is unremarkable without any hypertrophy, bleeding, abscess, area is diffusely mildly tender. Face and Sinus: sinuses nontender Throat: posterior oropharynx normal Eyes PERRL and EOMs intact bilaterally Neck no lymphadenopathy and supple Resp normal respiratory effort Neuro oriented x3 and CN's II-XII intact bilaterally Sensorium / Orientation: alert Gait (Neuro): normal gait Psych mental status grossly normal and thought process normal Skin no rashes or lesions noted and no wounds Discharge Plan Triage Chief Complaint: Dental ED Provider: Golden Milton Dx/Rx/DC Orders Clinical Impression: Dental decay, Odontalgia Instructions: ED Dental Pain Prescriptions: New amoxicillin 500 mg tablet 500 mg PO TID Qty: 30 0RF No Action amoxicillin-pot clavulanate 875-125 mg tablet 1 tab PO Q12H Qty: 20 0RF Primary Care Provider: Care Physician,No Primary Referrals: Dentist,Your [STAFF PHYSICIAN] - As soon as possible Disposition Disposition: Home, Self Care
[2023-02-04] MEDS: AMOXICILLIN 500 MG CAPSULE PO (14:24)
== END 2023-02-04 14:26 | disposition home or self-care (01) ==
LOC: ED 14:14
PROVIDERS: Emergency Provider Emergency Medicine; Visit Provider Emergency Medicine
DX: K02.9 Dental caries, unspecified (principal); K08.89 Other specified disorders of teeth and supporting structures
CPT/HCPCS: 99283

== ENCOUNTER 2023-08-21 18:41 | Emergency (ER) | payer MEDICAID, SELFPAY ==
[2023-08-21 18:41] VITALS: BP 109/67; PULSE 66; RESP 16; TEMP 36.9; O2SAT 99; BMI 18.2
--- OUTSIDE RECORDS SUMMARY | 2023-08-21 20:07 | XMS RPT_ITS | CCD ---
Author Name Unknown Address [address] [place] [id number] Organization [facility] Results Test Name Value Interpretation Reference Range Facil ity Procedures Date Procedure Procedure Detail Performing Clinician Start: 01-07-2022 Blood count hemoglobin Summary Purpose Family History No Family History Records FoundNo Family History Records Found Advance Directives No Advanced Directives Records FoundNo Advanced Directives Records Found Additional Source Comments (unrecognized sect ion and content) No Status Records FoundNo Status Records Found INFORMATION SOURCE (unrecogn ized section and content) DATE CREATED AUTHOR AUTHOR'S ORGANIZ ATION 01/13/2022 [facility] FOR RECORDS PERTAINING TO PATIENTS WHO ARE OR HAVE BEEN ENROLLED IN A CHEMICAL DEPENDENCY/SUBSTANCEABUSE PROGRAM, SOME INFORMATION MAY BE OMITTED. This clinical summary was aggregated from multiple sources. Caution should be exercised in using it in the provision of clinical care. This summary normalizes information from multiple sources, and as a consequence, information in this document may materially change the coding, format and clinical context of patient data. In addition, data may be omitted in some cases. CLINICAL DECISIONS SHOULD BE BASED ON THE PRIMARY CLINICAL RECORDS. [facility] [email or web address] [facility]. provides no warranty or guarantee of the accuracy or completeness of information in this document.
--- NOTE | 2023-08-21 20:18 | EDS_ITS ---
HPI <MARIANA Yee - Last Filed: 08/21/23 20:35> History of Present Illness Chief Complaint: Cold Sx Narrative Narrative: Patient presenting today requesting to be tested for COVID. He reports that his partner and child are positive. He reports that he tested positive at home earlier but needs an official test to be able to take off work. He reports that he has had fevers, chills, body aches, nasal congestion, cough, and decreased taste. He denies any chest pain, shortness of breath, abdominal pain, nausea, or vomiting. PFSH <MARIANA Yee - Last Filed: 08/21/23 20:35> PFSH Medical History Acute opioid withdrawal Denies previous medical history Home Medications amoxicillin 875 mg-potassium clavulanate 125 mg tablet 1 tab PO Q12H #20 tabs 08/13/22 [Rx Last Taken Unknown] amoxicillin 500 mg tablet 500 mg PO TID #30 tabs 02/04/23 [Rx Last Taken Unknown] Allergy/AdvReac Type Severity Reaction Status Date / Time No Known Allergies Allergy Verified 02/04/23 13:46 Social History Smoking Status: Current some day smoker tobacco type: e-cigarettes ROS <MARIANA Yee - Last Filed: 08/21/23 20:35> ROS ED Constitutional Constitutional ED: Reports chills, fever(s) and subjective ENT ENT ED: Reports rhinorrhea Cardiovascular Cardiovascular: Denies chest pain or palpitations Respiratory/Chest Respiratory/Chest: Reports cough; Denies dyspnea or dyspnea on exertion Gastrointestinal Gastrointestinal: Denies abdominal pain, diarrhea, nausea or vomiting Genitourinary Genitourinary ED: Denies dysuria, hematuria or urinary urgency Musculoskeletal Musculoskeletal: Reports myalgias; Denies arthralgias Integumentary Denies abscess, Abrasions or rash Neurologic Neurologic: Denies weakness EXAM <MARIANA Yee - Last Filed: 08/21/23 20:35> Physical Exam Const Vital Signs: 08/21/23 18:41 08/21/23 19:32 Temperature 98.5 F Temperature Source Temporal Pulse Rate 66 Respiratory Rate 16 Respiratory Effort Normal Respiratory Pattern Normal Blood Pressure 109/67 Blood Pressure Mean 81 Pulse Ox 99 Oxygen Delivery Method Room Air Positive well nourished, well developed and no apparent distress General Appearance ED: well developed HEENT Reports normocephalic and head/scalp atraumatic Mouth ED: Yes moist mucous membranes normal Eyes PERRL and EOMs intact bilaterally Neck full ROM and supple Chest Wall inspection of chest normal Resp normal respiratory effort and clear to auscultation bilaterally Cardio regular rate and regular rhythm GI soft to palpation, non-tender, non-distended and no masses Back/Spine normal ROM and normal to inspection Extremity normal to inspection and full ROM Neuro oriented x3, CN's II-XII intact bilaterally, moves all extremities, no focal motor deficits and no sensory deficits noted Sensorium / Orientation: awake and alert Psych mental status grossly normal and thought process normal Skin no rashes or lesions noted and no wounds <Dr. Andrew Terrazas, - Last Filed: 08/21/23 22:25> Physical Exam Const Vital Signs: 08/21/23 18:41 08/21/23 19:32 Temperature 98.5 F Temperature Source Temporal Pulse Rate 66 Respiratory Rate 16 Respiratory Effort Normal Respiratory Pattern Normal Blood Pressure 109/67 Blood Pressure Mean 81 Pulse Ox 99 Oxygen Delivery Method Room Air MDM <MARIANA Yee - Last Filed: 08/21/23 20:35> [facility] Narrative Medical decision making narrative: Patient presenting requesting to be tested for COVID so that he is able to take off work. He tested positive with an at-home test today but reports that his work is requesting an official test. He is nontoxic-appearing and in no acute distress. Vitals are unremarkable. Patient will be tested and is positive. He has been given supportive care measures. He will be given a work note. He will be discharged home in stable condition and is comfortable with plan. <Dr. Andrew Terrazas, - Last Filed: 08/21/23 22:25> [facility] Narrative Medical decision making narrative: Patient presenting requesting to be tested for COVID so that he is able to take off work. He tested positive with an at-home test today but reports that his work is requesting an official test. He is nontoxic-appearing and in no acute distress. Vitals are unremarkable. Patient will be tested and is positive. He has been given supportive care measures. He will be given a work note. He will be discharged home in stable condition and is comfortable with plan. This patient was seen with a PA/[employer] SENATOR Individually assessed they patient including history and physical. I have reviewed everything on the chart that is available and agree with the documentation provided by the PA/U.[employer]. SENATOR including discussion about the assessment, treatment plan, discussion, and return precautions. Patient previously tested positive for COVID-19. He states that his work requests a official COVID-19 test. Patient also request a work note. Vital signs stable he is afebrile. COVID came back positive. He does not require any more medications. Discharged home in stable condition. Impression: 1. COVID-19 Discharge Plan Triage Chief Complaint: Cold Sx ED Midlevel Provider: Aide Moura ED Provider: Andrew Terrazas Dx/Rx/DC Orders Clinical Impression: COVID-19 Instructions: Coronavirus Disease 2019 (COVID-19): Caring for Yourself or Others Prescriptions: No Action amoxicillin-pot clavulanate 875-125 mg tablet 1 tab PO Q12H Qty: 20 0RF amoxicillin 500 mg tablet 500 mg PO TID Qty: 30 0RF Stand Alone Forms: ED Work / School Excuse Primary Care Provider: Care Physician,No Primary Referrals: Care Physician,No Primary [Primary Care Provider] - Activity Restrictions/Additional Instructions: Please follow CDC isolation guidelines on COVID-19. Return for any worsening of your symptoms. You can use [id number] cold and flu medications for your symptoms as needed. Stay well-hydrated. Disposition Disposition: Home, Self Care Discharge Date/Time: 08/21/23 20:40
== END 2023-08-21 20:40 | disposition home or self-care (01) ==
PROVIDERS: Emergency Provider Student in an Organized Health Care Education/Training Program; Visit Provider Student in an Organized Health Care Education/Training Program
DX: U07.1 COVID-19 (principal); F17.290 Nicotine dependence, other tobacco product, uncomplicated
CPT/HCPCS: 87811; 99282